=== PATIENT | female | born 1940 | race Caucasian/White ===

== ENCOUNTER → 2019-12-31 13:58 | Outpatient (BNVA) | payer MEDICARE, SELFPAY | PROVIDERS: Family Provider Family Medicine; PCP Family Medicine; Visit Provider Nurse Practitioner Family | DX: R35.0 Frequency of micturition (principal); R31.9 Hematuria, unspecified | CPT/HCPCS: 80053; 81000 ==

== ENCOUNTER → 2020-01-09 10:12 | Outpatient (BNVA) | payer MEDICARE, SELFPAY | PROVIDERS: Family Provider Family Medicine; PCP Family Medicine; Visit Provider Nurse Practitioner Family | DX: N39.0 Urinary tract infection, site not specified (principal) | CPT/HCPCS: 81000 ==

== ENCOUNTER → 2020-07-20 10:26 | Outpatient (BNVA) | payer MEDICARE, SELFPAY | PROVIDERS: Family Provider Family Medicine; PCP Family Medicine; Visit Provider Registered Nurse | DX: J32.9 Chronic sinusitis, unspecified (principal); Z20.822 Contact with and (suspected) exposure to COVID-19 | CPT/HCPCS: 87635 ==

== ENCOUNTER → 2020-11-27 10:41 | Outpatient (BNVA) | payer MEDICARE, SELFPAY | PROVIDERS: Family Provider Family Medicine; PCP Family Medicine; Visit Provider Nurse Practitioner Family | DX: N39.0 Urinary tract infection, site not specified (principal); R35.0 Frequency of micturition | CPT/HCPCS: 81000; 87086 ==

== ENCOUNTER → 2020-11-30 11:09 | Outpatient (BNVA) | payer MEDICARE, SELFPAY | PROVIDERS: Family Provider Family Medicine; PCP Family Medicine; Visit Provider Nurse Practitioner Family | DX: R35.0 Frequency of micturition (principal); N30.00 Acute cystitis without hematuria | CPT/HCPCS: 81000 ==

== ENCOUNTER → 2020-12-22 11:10 | Outpatient (BNVA) | payer MEDICARE, SELFPAY | PROVIDERS: Family Provider Family Medicine; PCP Nurse Practitioner Family; Visit Provider Nurse Practitioner Family | DX: R30.9 Painful micturition, unspecified (principal); E78.5 Hyperlipidemia, unspecified; I10 Essential (primary) hypertension; N30.00 Acute cystitis without hematuria | CPT/HCPCS: 81000 ==

== ENCOUNTER 2021-01-19 01:42 | Emergency (ER) | payer MEDICARE, SELFPAY ==
--- NOTE | 2021-01-19 01:48 | ECG_ITS ---
[facility] Test Date: 2021-01-19 Pat Name: Yulissa Craig Department: Room: Gender: Female Press Puller: : 1940 Requested By: Beau Carrington Order Number: [id number] Ariana MD: Priscilla Sandoval M.D. Measurements Intervals [place] Rate: 99 P: 78 OK: 141 QRS: 59 QRSD: 90 T: 67 QT: 316 QTc: 407 Interpretive Statements SINUS RHYTHM MINIMAL VOLTAGE CRITERIA FOR LVH, CONSIDER NORMAL VARIANT [MEETS CRITERIA IN ONE OF: R(aVL), S(V1), R(V5), R(V5/V6)+S(V1)] No previous ECG available for comparison Electronically Signed On 01-21-2021 9:06:53 CDT by Priscilla Sandoval M.D. [email or web address] medical centerSina [email or web address].[employer]/store/NU/[id number]/[id number] f
--- NOTE | 2021-01-19 01:48 | XRR_ITS ---
PROCEDURE INFORMATION: Exam: XR Chest Exam date and time: 01/19/2021 1:48 AM Age: 80 years old Clinical indication: Shortness of breath; Additional info: SOB TECHNIQUE: Imaging protocol: XR of the chest. Views: 1 view. COMPARISON: CR Cervical Spine Flex/Ext [id number] 05/23/2017 11:35 AM FINDINGS: Lungs: The lungs are over-inflated with flattening of the diaphragm indicating emphysema. There is scattered mild fibrosis. No acute pneumonia is seen. Pleural spaces: Unremarkable. No pleural effusion. No pneumothorax. Heart/Mediastinum: Unremarkable. No cardiomegaly. Bones/joints: Unremarkable. XR/XR chest 1V portable [id number] IMPRESSION: Overinflated lungs with scattered interstitial fibrosis consistent with the was a and COPD. No definite acute abnormality.
[2021-01-19 01:51] VITALS: BP 200/130; PULSE 104; RESP 20; TEMP 36.6; O2SAT 94; BMI 22.1
--- NOTE | 2021-01-19 01:51 | W.ED.SOB ---
HPI - SOB/Dyspnea General: Chief Complaint: Shortness of Breath/Dyspnea Stated Complaint: RESP. DISTRESS Time Seen by Provider: 01/19/21 01:42 Source: patient and EMS Mode of arrival: EMS Limitations: no limitations History of Present Illness: HPI Narrative: 80-year-old female has a history of COPD states she had increased shortness of breath over the last 4 to 5 days. Per EMS when they arrived she was on her roommates oxygen they put her on 2 L. Here on 2 L she is at 92%. She is a chronic smoker. She states she did use her inhaler and it did improve. She was given Solu-Medrol and a treatment in route which she states improved her symptoms. She has had a cough and slight congestion. Denies any fevers. Denies any sick contacts. Denies any chest pain. Associated symptoms: Deny abdominal pain, chest pain, fever(s), nausea or vomiting Review of Systems Const: Denies: fever(s), chills, body aches or change in appetite Eyes: Denies: blurry vision or eye discomfort ENMT: Denies: throat pain or dental pain Card: Denies: chest pain Resp: Reports: dyspnea, non-productive cough and wheezing GI: Denies: abdominal pain, nausea, vomiting or diarrhea : Denies: dysuria Musc: Denies: neck pain or back pain Skin/Breast: Denies: rash Neuro: Denies: headache(s) Psych: Denies: depression Neeraj/Lymph: Denies: easy bruising All/Imm: Denies: urticaria PFSH ED PFSH: Medical History HTN (hypertension) Hyperlipidemia Social History Smoking and tobacco status: current every day smoker cigarettes Physical Exam Const: COMMON NORMALS: no acute distress, patient oriented x3 and healthy appearing HENMT: COMMON NORMALS: normocephalic and atraumatic HEAD & SCALP: normocephalic and atraumatic Eye: COMMON NORMALS: Equal, round and reactive pupils present and EOMs intact bilaterally PUPIL: Yes Equal, round and reactive pupils present Neck/C-Spine: COMMON NORMALS: full ROM and supple Chest: COMMONS NORMALS: normal inspection of the chest and normal palpation of entire chest wall Resp: COMMON NORMALS: normal respiratory effort, No retractions and No use of accessory muscles AUSCULTATION: wheezes Cardio: COMMON NORMALS: regular rate, regular rhythm and No murmurs present (Cardio) RATE: regular rate RHYTHM: regular rhythm GI: COMMON NORMALS: Normal to inspection, nondistended, normoactive bowel sounds present, Soft to palpation, non-tender and no masses PALPATION: Yes Soft to palpation Extremity: COMMON NORMALS: normal to inspection and full ROM Neuro: COMMON NORMALS: patient oriented x3, moves all extremities and no focal motor deficits Psych: COMMON NORMALS: mental status grossly normal, Normal thought process present and cooperative THOUGHT PROCESS: Normal thought process present Skin: COMMON NORMALS: no rashes or lesions noted and no wounds GENERAL SKIN EXAM: no rashes or lesions noted Course Vital Signs: Vital signs: Vital Signs Temperature 97.8 F 01/19/21 01:51 Pulse Rate 98 01/19/21 02:45 Respiratory Rate 22 H 01/19/21 02:09 Blood Pressure 157/99 01/19/21 02:45 Pulse Oximetry 91 01/19/21 02:45 MDM - SOB/Dyspnea MDM Narrative: Medical decision making narrative: Patient presents with likely COPD exacerbation along with bronchitis. X-ray here shows no signs of pneumonia her blood work here is normal. She feels improved after breathing treatments. Patient is likely chronically hypoxic still requiring 2 L of oxygen here. We will set her up on home oxygen. Will prescribe her albuterol along with steroids and an antibiotic. She is stable for discharge is to follow-up with PCP and return if worsening. Lab Data: Labs: Lab Results 01/19/21 01/19/21 01/19/21 Range/Units 01:48 01:48 01:48 WBC (4.0-10.0) 10^3/ uL RBC (4.1-5.3) 10^6/u L Hgb (11.5-15.3) g/dL Hct (37.0-47.0) % MCV (81-99) fl MCH (28.0-34.0) pg MCHC (30.0-36.0) g/dL RDW (12.1-15.1) % Plt Count (130-400) 10^3/c mm MPV (7.4-10.4) fL Neut % (Auto) % Lymph % (Auto) % [place] % (Auto) % Eos % (Auto) % Baso % (Auto) % Neut # (Auto) (1.8-7.7) 10^3/u L Lymph # (Auto) (0.8-4.8) 10^3/u L [place] # (Auto) (0.2-0.9) 10^3/u L Eos # (Auto) (0.0-0.8) 10^3/u L Baso # (Auto) (0.0-0.1) 10^3/u L Nucleated RBC % (a uto) % Nucleated RBCs # /100WBC Specimen Type Arterial Sample Site Radial, right ABG pH 7.35 (7.35-7.45) ABG pCO2 49.2 H (35-45) mmHg ABG pO2 70.6 L (80.0-100.0) mmH g ABG HCO3 27.1 H (22-26) mmol/L ABG Base Excess 0.7 (-2.0-2.0) mmol/ L Jovan Test Pos Hematocrit 42.3 (37-47) % O2 Delivery Device Nc O2 Liters/Min 2.0 % Custodial Services Manager ID ellpe Sodium 138 (136-145) mmol/L Potassium 4.2 (3.5-5.1) mmol/L Chloride 99 (98-107) mmol/L Carbon Dioxide 26 (22-29) mmol/L Anion Gap 17.2 (5-19) BUN 19 (8-23) mg/dL Creatinine 0.9 (0.5-0.9) mg/dL GFR Calculation Not Reportable Glucose 103 (65-115) mg/dL Calculated Osmolal ity 289 (285-295) mOsm/k g Lactic Acid 0.8 (0.5-2.2) mmol/L Calcium 9.7 (8.5-10.5) mg/dL Total Bilirubin 0.6 (0.15-1.2) mg/dL AST 25 (0-32) U/L ALT 14 (0-33) U/L Alkaline Phosphata se 96 (35-105) IU/L C-Reactive Protein 1.1 (0.0-4.9) mg/L NT-Pro-B Natriuret Pep 255 (0-450) pg/mL Total Protein 7.9 (6.6-8.7) g/dL Albumin 4.8 (3.5-5.2) g/dL Globulin 3.1 (1.3-4.6) g/dL SARS-CoV-2 Ag (Rap id) (Negative) 01/19/21 01/19/21 Range/Units 02:01 02:23 WBC 12.6 H (4.0-10.0) 10^3/ uL RBC 4.25 (4.1-5.3) 10^6/u L Hgb 13.4 (11.5-15.3) g/dL Hct 41.5 (37.0-47.0) % MCV 97.6 (81-99) fl MCH 31.5 (28.0-34.0) pg MCHC 32.3 (30.0-36.0) g/dL RDW 13.9 (12.1-15.1) % Plt Count 248 (130-400) 10^3/c mm MPV 10.5 H (7.4-10.4) fL Neut % (Auto) 83.8 % Lymph % (Auto) 10.0 % Knott % (Auto) 2.5 % Eos % (Auto) 3.0 % Baso % (Auto) 0.5 % Neut # (Auto) 10.54 H (1.8-7.7) 10^3/u L Lymph # (Auto) 1.3 (0.8-4.8) 10^3/u L [place] # (Auto) 0.3 (0.2-0.9) 10^3/u L Eos # (Auto) 0.4 (0.0-0.8) 10^3/u L Baso # (Auto) 0.1 (0.0-0.1) 10^3/u L Nucleated RBC % (a uto) 0 % Nucleated RBCs # 0.0 /100WBC Specimen Type Sample Site ABG pH (7.35-7.45) ABG pCO2 (35-45) mmHg ABG pO2 (80.0-100.0) mmH g ABG HCO3 (22-26) mmol/L ABG Base Excess (-2.0-2.0) mmol/ L Jovan Test Hematocrit (37-47) % O2 Delivery Device O2 Liters/Min % Custodial Services Manager ID Sodium (136-145) mmol/L Potassium (3.5-5.1) mmol/L Chloride (98-107) mmol/L Carbon Dioxide (22-29) mmol/L Anion Gap (5-19) BUN (8-23) mg/dL Creatinine (0.5-0.9) mg/dL GFR Calculation Glucose (65-115) mg/dL Calculated Osmolal ity (285-295) mOsm/k g Lactic Acid (0.5-2.2) mmol/L Calcium (8.5-10.5) mg/dL Total Bilirubin (0.15-1.2) mg/dL AST (0-32) U/L ALT (0-33) U/L Alkaline Phosphata se (35-105) IU/L C-Reactive Protein (0.0-4.9) mg/L NT-Pro-B Natriuret Pep (0-450) pg/mL Total Protein (6.6-8.7) g/dL Albumin (3.5-5.2) g/dL Globulin (1.3-4.6) g/dL SARS-CoV-2 Ag (Rap id) Negative (Negative) EKG Data^: EKG 1: Attestation: I personally reviewed and interpreted this EKG as follows: EKG Interpretation Date: 01/19/21 EKG interpretation time: 01:56 Interpretation: nsr hr [address] or t wave abnormalities qrs 90 qtc 373 Discharge Plan Discharge Patient Disposition: Home Clinical Impression: Acute exacerbation of chronic obstructive airways disease Condition: Stable Prescriptions: New prednisone 50 mg tablet 50 mg PO DAILY Qty: 5 RF: 0 albuterol sulfate 90 mcg/actuation HFA aerosol inhaler 2 inh INHALATION Q6H PRN (Reason: shortness of breath or wheezing) Qty: 8 RF: 0 cephalexin 500 mg capsule 500 mg PO QID 7 Days Qty: 28 RF: 0 No Action dexamethasone [Decadron] 4 mg tablet 4 mg PO DAILY Qty: 6 RF: 0 albuterol sulfate [ProAir HFA] 90 mcg/actuation HFA aerosol inhaler 1 inh inhalation QID 30 Days Qty: 1 RF: 0 metoprolol tartrate 50 mg tablet See Rx Instructions .ROUTE .COMPLEX Qty: 60 RF: 0 simvastatin 40 mg tablet See Rx Instructions .ROUTE .COMPLEX Qty: 30 RF: 0 Discharge Orders: Discharge ED (Routine); Ordered 01/19/21 Ordered By: Beau Carrington Other Ambulatory Orders: DME: Oxygen (Order) Location: None Selected Ordered By: Beau Carrington Referrals: Kristen Thomas FNP [Primary Care Provider] - 1-3 days Discharge Diet: Advance as tolerated Discharge Activity: Resume usual activity Patient Instructions: Chronic Bronchitis (ED) Coding Level of Care Code ED Silk Screen Frame Assembler for Chg Fwd Exam Comprehensive
[2021-01-19 02:09] VITALS: PULSE 107; RESP 22; O2SAT 93
[2021-01-19] MEDS: albuterol 8 gm MDI 2 PUFF INHALATION (02:09)
[2021-01-19 02:12] VITALS: PULSE 107
[2021-01-19 02:22] LABS: ABG PCO2 49.2 mmHg (35-45); ABG PH Result 7.35 (7.35-7.45); Arterial Blood Gas Hematocrit 42.3 % (37-47); Base Excess ABG 0.7 mmol/L (-2.0-2.0); Blood Gas Allen Test Pos; Blood Gas Sample Site Radial, right; Blood Gas Sample Type Arterial; HCO3 ABG 27.1 mmol/L (22-26); Oxygen Device NC; PO2 ABG 70.6 mmHg (80.0-100.0)
[2021-01-19 02:27] LABS: Basophils # 0.1 10^3/uL (0.0-0.1); Basophils % 0.5 %; Eosinophils # 0.4 10^3/uL (0.0-0.8); Hematocrit 41.5 % (37.0-47.0); Hemoglobin 13.4 g/dL (11.5-15.3); Lymphocytes # 1.3 10^3/uL (0.8-4.8); Mean Corpuscular HGB Conc 32.3 g/dL (30.0-36.0); Mean Corpuscular Hemoglobin 31.5 pg (28.0-34.0); Mean Corpuscular Volume 97.6 fl (81-99); Mean Platelet Volume 10.5 fL (7.4-10.4); Monocytes # 0.3 10^3/uL (0.2-0.9); Monocytes % 2.5 %; Neutrophils # 10.54 10^3/uL (1.8-7.7); Neutrophils % 83.8 %; Nucleated Red Blood Cells % 0 %; Platelet Count 248 10^3/cmm (130-400); Red Blood Count 4.25 10^6/uL (4.1-5.3); Red Cell Distribution Width 13.9 % (12.1-15.1); White Blood Count 12.6 10^3/uL (4.0-10.0)
[2021-01-19 02:35] LABS: Lactic Sepsis W/Reflex 0.8 mmol/L (0.5-2.2)
[2021-01-19 02:36] LABS: SARS Covid-2 Antigen Negative (Negative)
[2021-01-19 02:45] VITALS: BP 157/99; PULSE 98; O2SAT 91
[2021-01-19 02:59] LABS: Alanine Aminotransferase 14 U/L (0-33); Albumin Level 4.8 g/dL (3.5-5.2); Alkaline Phosphatase 96 IU/L (35-105); Anion Gap 17.2 (5-19); Aspartate Amino Transferase 25 U/L (0-32); Blood Urea Nitrogen 19 mg/dL (8-23); C Reactive Protein 1.1 mg/L (0.0-4.9); Calcium 9.7 mg/dL (8.5-10.5); Carbon Dioxide 26 mmol/L (22-29); Chloride 99 mmol/L (98-107); Globulin 3.1 g/dL (1.3-4.6); Glucose 103 mg/dL (65-115); NT Pro B Type Natriuretic Pept 255 pg/mL (0-450); Osmolality Calculated 289 mOsm/kg (285-295); Potassium 4.2 mmol/L (3.5-5.1); Sodium 138 mmol/L (136-145); Total Bilirubin 0.6 mg/dL (0.15-1.2); Total Protein 7.9 g/dL (6.6-8.7)
[2021-01-19 05:07] VITALS: O2SAT 86; O2SAT 88; O2SAT 92
[2021-01-19 05:19] VITALS: BP 132/108; PULSE 101; RESP 18; O2SAT 91
== END 2021-01-19 06:07 | disposition home or self-care (01) ==
PROVIDERS: Emergency Provider Emergency Medicine; PCP Nurse Practitioner Family
DX: J44.1 Chronic obstructive pulmonary disease with (acute) exacerbation (principal); I10 Essential (primary) hypertension; E78.5 Hyperlipidemia, unspecified; F17.210 Nicotine dependence, cigarettes, uncomplicated; Z20.822 Contact with and (suspected) exposure to COVID-19
CPT/HCPCS: 36600; 71045; 80053; 82803; 83605; 83880; 85025; 86140; 87426; 93005; 94640; 99284; J3535

== ENCOUNTER 2021-02-04 06:00 | Outpatient (CLI) | payer MEDICARE, SELFPAY | END 2021-02-04 06:01 | disposition home or self-care (01) | LOC: LAB 09-23 15:18 | PROVIDERS: PCP Nurse Practitioner Family; Visit Provider Nurse Practitioner Family | DX: R35.0 Frequency of micturition (principal) | CPT/HCPCS: 81000 ==

== ENCOUNTER → 2021-03-30 11:00 | Outpatient (BNVA) | payer MEDICARE, SELFPAY | PROVIDERS: PCP Nurse Practitioner Family; Visit Provider Internal Medicine Critical Care Medicine | DX: Z20.822 Contact with and (suspected) exposure to COVID-19 (principal); J44.9 Chronic obstructive pulmonary disease, unspecified | CPT/HCPCS: 87635 ==

== ENCOUNTER 2021-04-06 12:48 | Outpatient (CLI) | payer MEDICARE, SELFPAY ==
--- NOTE | 2021-04-06 13:46 | PFTS_ITS ---
Date of Study:04/06/21 Date of Dictation: 04/07/2021 MECHANICS: Prebronchodilator forced vital capacity (FVC) is normal. Prebronchodilator forced expiratory volume in one second (FEV1) is normal. FEV1/FVC is normal. There is no postbronchodilator study. FLOW VOLUME LOOP: Normal. LUNG VOLUMES: Total lung capacity (TLC) is normal. Residual volume (RV) is normal.. DIFFUSING CAPACITY FOR CARBON MONOXIDE: Normal. . INTERPRETATION: The pulmonary function tests are normal. MTDD
--- NOTE | 2021-04-06 14:31 | PFTS_ITS ---
Date of Study:04/13/21 Date of Dictation: 04/13/2021 MECHANICS: Postbronchodilator forced vital capacity (FVC) is decreased 79%. Postbronchodilator forced expiratory volume in one second (FEV1) is moderately decreased 59%. FEV1/FVC is reduced. There is no significant response to bronchodilator. FLOW VOLUME LOOP: Sloping of expiratory limb suggestive of obstructive ventilatory defect LUNG VOLUMES: Total lung capacity (TLC) is increased. Residual volume (RV) severely increased 216% . DIFFUSING CAPACITY FOR CARBON MONOXIDE: moderately reduced 44% . INTERPRETATION: The pulmonary function tests are consistent with moderate obstructive ventilatory lung disease. There is significant air trapping on lung volumes. There is moderate gas transfer defect.-clinical Correlation recommended. MTDD
== END 2021-04-06 12:49 | disposition home or self-care (01) ==
LOC: RT 12:51
PROVIDERS: PCP Nurse Practitioner Family; Visit Provider Internal Medicine Critical Care Medicine
DX: J44.9 Chronic obstructive pulmonary disease, unspecified (principal)
CPT/HCPCS: 94060; 94726; 94729

== ENCOUNTER → 2021-07-28 10:11 | Outpatient (BNVA) | payer MEDICARE, SELFPAY | PROVIDERS: PCP Nurse Practitioner Family; Visit Provider Internal Medicine Critical Care Medicine | DX: J44.9 Chronic obstructive pulmonary disease, unspecified (principal); J96.11 Chronic respiratory failure with hypoxia; F17.210 Nicotine dependence, cigarettes, uncomplicated; I10 Essential (primary) hypertension | CPT/HCPCS: 99214 ==

== ENCOUNTER 2021-08-16 07:31 | Emergency (ER) | payer MEDICARE, SELFPAY ==
[2021-08-16 07:36] VITALS: BP 180/87; PULSE 84; RESP 19; TEMP 37.1; O2SAT 98
--- NOTE | 2021-08-16 07:47 | ECG_ITS ---
[facility] Test Date: 2021-08-16 Pat Name: Yulissa Craig Department: Room: Gender: Female Slip Dumper: : 1940 Requested By: Nir Ibanez Order Number: [id number] Ariana MD: Luciano Sánchez M.D. Measurements Intervals [place] Rate: 79 P: 71 ME: 140 QRS: 53 QRSD: 91 T: 72 QT: 351 QTc: 403 Interpretive Statements SINUS RHYTHM POSSIBLE LEFT ATRIAL ENLARGEMENT [-0.1mV P-WAVE IN V1/V2] MODERATE ST DEPRESSION [0.05+ mV ST DEPRESSION] Compared to ECG 01/19/2021 01:56:24 ST (T wave) deviation now present Electronically Signed On 08-17-2021 9:16:25 CDT by Luciano Sánchez M.D. [id number]
--- NOTE | 2021-08-16 07:47 | XR_ITS ---
WS: [id number] XR chest 1V portable [id number] REASON FOR EXAM: dyspnea/cough FINDINGS: Mild tortuosity the thoracic aorta. The heart is enlarged. Calcified granulomatous disease in both hemithoraces with dominant calcified granuloma in the right u pper lung. Fibronodular changes and bullous disease in both lung apices predominating on the right. B oth hemidiaphragms are flattened indicating hyperexpansion. No acute pulmonary parenchymal abnormality. Compared to the previous examination of 01/19/2021 there is a masslike density projected over the left lower lung which appears to be extrapleural. XR/XR chest 1V portable [id number] IMPRESSION: No acute lung abnormality. Interval development of masslike density over the le ft lower lung. The etiology is uncertain. This may relate to diaphragmatic abno rmality or represent overlying soft tissue artifact. Follow-up PA and lateral c hest is recommended.
--- NOTE | 2021-08-16 07:56 | ED_ITS ---
HPI - SOB/Dyspnea General: Chief Complaint: Shortness of Breath/Dyspnea Stated Complaint: SOB Time Seen by Provider: 08/16/21 07:38 Source: patient Mode of arrival: EMS Limitations: no limitations History of Present Illness: HPI Narrative: 72-year-old female presents emergency room with via EMS complaining of shortness of breath. Patient has a history of COPD and is chronically on 3 L by nasal cannula this morning she felt severely short of breath turned her oxygen up eventually to 5 L. She has only been using her rescue inhaler once or twice a day. She has noticed a change in the sputum the volume of sputum produced in a day is similar but the character has changed is more mucus-like. He denies any fever she was given nebulizer in route and is feeling better she is no longer short of breath she is on her baseline level of oxygen at this time. MD elicited complaint: shortness of breath and cough Onset (ago): hour(s) Timing: intermittent and improved Severity: moderate Exacerbating factors: nothing Relieving factors: oxygen, rest and bronchodilators Known history of: COPD Associated symptoms: Reports chest congestion and cough; Deny abdominal pain, chest pain, diaphoresis, dizziness, extremity pain, fever(s), hemoptysis, lightheadedness, myalgias, nausea, orthopnea, palpitations, paresthesias, polydipsia, polyuria, rash, sense of impending doom, syncope or vomiting Treatment prior to arrival: oxygen and bronchodilator Review of Systems Const: Denies: fever(s), chills or diaphoresis ENMT: Denies: throat pain, ear or mastoid pain, nasal discharge or nasal congestion Card: Denies: chest pain, palpitations, lightheadedness, syncope or orthopnea Resp: Reports: dyspnea, productive cough and chest congestion; Denies: hemoptysis GI: Denies: abdominal pain, nausea or vomiting : Denies: flank pain, difficulty voiding, dysuria, urinary frequency or urinary urgency Musc: Denies: extremity pain Skin/Breast: Denies: rash or pruritus Neuro: Denies: dizziness Endo: Denies: polyuria or polydipsia PFS ED PFSH: Medical History HTN (hypertension) Hyperlipidemia Social History Smoking and tobacco status: current every day smoker (0.5 ppd) cigarettes Packs smoked per day: 1 Years cigarettes smoked: 65 Quit status (tobacco): considering quitting Second hand smoke exposure: Yes Smoking risk assessment/counseling performed?: Yes Alcohol intake: never Counseling given: No Counseling given: No Lives independently: Yes Household members: other Details: Roommate Marital status: / Current occupational status: unemployed History of recent travel: No Current gender identity: Female Physical Exam Const: COMMON NORMALS: no acute distress GENERAL APPEARANCE: cooperative and comfortable ORIENTATION/CONSCIOUSNESS: Yes awake, Yes oriented to person, Yes oriented to place and Yes oriented to time HENMT: COMMON NORMALS: normocephalic, atraumatic and hearing grossly normal bilaterally HEAD & SCALP: normocephalic and atraumatic Neck/C-Spine: COMMON NORMALS: no JVD Resp: COMMON NORMALS: normal respiratory effort, No retractions, No use of accessory muscles and clear to auscultation bilaterally AUSCULTATION: clear to auscultation bilaterally Cardio: COMMON NORMALS: no JVD, regular rate, regular rhythm and No murmurs present (Cardio) RATE: regular rate RHYTHM: regular rhythm GI: COMMON NORMALS: Soft to palpation and No hepatosplenomegaly present AUSCULTATION: Yes normoactive bowel sounds PALPATION: Yes Soft to palpation, No Tenderness to palpation present (GI), No Guarding due to palpation present (GI) and Yes No hepatosplenomegaly present Extremity: COMMON NORMALS: normal to inspection, capillary refill normal, no clubbing, cyanosis or edema, no calf tenderness and no pedal edema Neuro: SENSORIUM/ORIENTATION: Yes oriented to person, Yes oriented to place and Yes oriented to time Skin: COMMON NORMALS: no rashes or lesions noted GENERAL SKIN EXAM: no rashes or lesions noted Course Vital Signs: Vital signs: Vital Signs Temperature 98.1 F 08/16/21 08:10 Pulse Rate 77 08/16/21 08:10 Respiratory Rate 19 H 08/16/21 07:36 Blood Pressure 150/80 08/16/21 08:10 Pulse Oximetry 96 08/16/21 08:10 MDM - SOB/Dyspnea Medical Decision Making Reviewed labs and imaging. Patient has a soft tissue shadowing uncertain finding on the right lower lobe of the lung recommend she follow-up with Dr. Fontenot to get further evaluation of that either follow-up chest x-ray or CT. She is better now after receiving a nebulizer in route here we are going to discharge her home encourage her to use the albuterol regularly for the next few days prednisone burst and taper and also put her on doxycycline for 10 days since she has a change in baseline sputum return if has problems Medical Records I reviewed the patient's medical records. Lab Data I reviewed the patient's lab results. : 08/16/21 07:45 08/16/21 07:45 Labs/Radiology: Radiology Impressions Chest X-Ray 08/16/21 07:47 IMPRESSION: No acute lung abnormality. Interval development of masslike density over the left lower lung. The etiology is uncertain. This may relate to diaphragmatic abnormality or represent overlying soft tissue artifact. Follow-up PA and lateral chest is recommended. Laboratory Results WBC 16.0 10^3/uL (4.0-10.0) H 08/16/21 07:45 RBC 4.82 10^6/uL (4.1-5.3) 08/16/21 07:45 Hgb 15.3 g/dL (11.5-15.3) 08/16/21 07:45 Hct 48.4 % (37.0-47.0) H 08/16/21 07:45 MCV 100.4 fl (81-99) H 08/16/21 07:45 MCH 31.7 pg (28.0-34.0) 08/16/21 07:45 MCHC 31.6 g/dL (30.0-36.0) 08/16/21 07:45 RDW 12.9 % (12.1-15.1) 08/16/21 07:45 Plt Count 269 10^3/cmm (130-400) 08/16/21 07:45 MPV 11.0 fL (7.4-10.4) H 08/16/21 07:45 Neut % (Auto) 74.3 % 08/16/21 07:45 Lymph % (Auto) 13.5 % 08/16/21 07:45 [place] % (Auto) 5.4 % 08/16/21 07:45 Eos % (Auto) 5.9 % 08/16/21 07:45 Baso % (Auto) 0.5 % 08/16/21 07:45 Neut # (Auto) 11.88 10^3/uL (1.8-7.7) H 08/16/21 07:45 Lymph # (Auto) 2.2 10^3/uL (0.8-4.8) 08/16/21 07:45 [place] # (Auto) 0.9 10^3/uL (0.2-0.9) 08/16/21 07:45 Eos # (Auto) 0.9 10^3/uL (0.0-0.8) H 08/16/21 07:45 Baso # (Auto) 0.1 10^3/uL (0.0-0.1) 08/16/21 07:45 Nucleated RBC % (auto) 0 % 08/16/21 07:45 Nucleated RBCs # 0.0 /100WBC 08/16/21 07:45 Specimen Type Arterial 08/16/21 07:51 Sample Site Radial, left 08/16/21 07:51 ABG pH 7.31 (7.35-7.45) L 08/16/21 07:51 ABG pCO2 53.6 mmHg (35-45) H 08/16/21 07:51 ABG pO2 91.4 mmHg (80.0-100.0) 08/16/21 07:51 ABG HCO3 27.2 mmol/L (22-26) H 08/16/21 07:51 ABG O2 Saturation 97.1 08/16/21 07:51 ABG Base Excess 0.0 mmol/L (-2.0-2.0) 08/16/21 07:51 Jovan Test Pos 08/16/21 07:51 A-a O2 Gradient 5.4 mmHg (5-10) 08/16/21 07:51 Hematocrit 43.3 % (37-47) 08/16/21 07:51 Hgb O2 Saturation 93.0 % (95-100) L 08/16/21 07:51 Carboxyhemoglobin 3.0 %THgb (0.4-20.1) 08/16/21 07:51 Methemoglobin 1.2 % (0.4-1.5) 08/16/21 07:51 Total Hemoglobin 14.1 g/dL (12-16) 08/16/21 07:51 Sodium 143.0 mmol/L (131-143) 08/16/21 07:51 Potassium 4.5 mmol/L (3.5-5.0) 08/16/21 07:51 Glucose 113.0 mg/dL (70-115) 08/16/21 07:51 Ionized Calcium 1.2 mmol/L (1.1-1.4) 08/16/21 07:51 O2 Delivery Device Nc 08/16/21 07:51 O2 Liters/Min 2.0 % 08/16/21 07:51 FiO2 28.0 % 08/16/21 07:51 Division Human Resources Manager ID Cak 08/16/21 07:51 Sodium 137 mmol/L (136-145) 08/16/21 07:45 Potassium 4.8 mmol/L (3.5-5.1) 08/16/21 07:45 Chloride 100 mmol/L (98-107) 08/16/21 07:45 Carbon Dioxide 28 mmol/L (22-29) 08/16/21 07:45 Anion Gap 13.8 (5-19) 08/16/21 07:45 BUN 27 mg/dL (8-23) H 08/16/21 07:45 Creatinine 1.0 mg/dL (0.5-0.9) H 08/16/21 07:45 GFR Calculation Not Reportable 08/16/21 07:45 Glucose 116 mg/dL (65-115) H 08/16/21 07:45 Calculated Osmolality 290 mOsm/kg (285-295) 08/16/21 07:45 Calcium 9.8 mg/dL (8.5-10.5) 08/16/21 07:45 Discharge Plan Discharge Patient Disposition: Home Clinical Impression: Acute exacerbation of chronic obstructive airways disease Condition: Stable Prescriptions: New doxycycline hyclate 100 mg capsule 100 mg PO BID 10 Days Qty: 20 0RF Medrol (Luigi) 4 mg tablets,dose pack See Rx Instructions .ROUTE .COMPLEX Qty: 21 0RF Rx Instructions: orally per package directions albuterol sulfate 90 mcg/actuation HFA aerosol inhaler 2 inh INHALATION Q4H PRN (Reason: shortness of breath or wheezing) Qty: 18 0RF No Action Spiriva with HandiHaler 18 mcg capsule, w/inhalation device 1 cap inhalation DAILY 30 Days Qty: 60 4RF Rx Instructions: puncture 1 cap using device; one dose = 2 inhalations albuterol sulfate [ProAir HFA] 90 mcg/actuation HFA aerosol inhaler 1 inh inhalation QID 30 Days Qty: 1 0RF Rx Instructions: 340B, may sub Ventolin if cheaper simvastatin 40 mg tablet See Rx Instructions .ROUTE .COMPLEX Qty: 90 1RF Dose Instruction: TAKE 1 TABLET EVERY DAY Rx Instructions: TAKE 1 TABLET EVERY DAY NEEDS LAB WORK albuterol sulfate 90 mcg/actuation HFA aerosol inhaler 2 inh INHALATION Q6H PRN (Reason: shortness of breath or wheezing) 30 Days Qty: 8 4RF budesonide-formoterol [Symbicort] 160-4.5 mcg/actuation HFA aerosol inhaler 2 puff inhalation BID 30 Days Qty: 10.2 3RF metoprolol tartrate 50 mg tablet See Rx Instructions .ROUTE .COMPLEX Qty: 60 0RF Dose Instruction: TAKE 1 TABLET BY MOUTH TWICE DAILY Rx Instructions: TAKE 1 TABLET BY MOUTH TWICE DAILY Discharge Orders: Discharge ED (Routine); Ordered 08/16/21 Ordered By: Nir Kim Referrals: Kristen Thomas FNP [Primary Care Provider] - Discharge Diet: Usual diet Discharge Activity: Increase activity as tolerated Patient Instructions: Opioid Safety Activity Restrictions/Additional Instructions: Follow-up with Dr. Fontenot within the next 10 to 14 days. You will need to discuss with him follow-up on the chest x-ray done today for further evaluation. Coding Level of Care Code ED Senior Clinical Data Coordinator for Sydney Fwfrancisco Exam Comprehensive
[2021-08-16 08:02] LABS: ABG PCO2 53.6 mmHg (35-45); ABG PH Result 7.31 (7.35-7.45); Alveolar-Arterial Oxygen Gradi 5.4 mmHg (5-10); Arterial Blood Gas Hematocrit 43.3 % (37-47); Blood Gas Allen Test Pos; Blood Gas Operator Identificat CAK; Blood Gas Sample Site Radial, left; Blood Gas Sample Type Arterial; HCO3 ABG 27.2 mmol/L (22-26); Ionized Calcium Level - ABG 1.2 mmol/L (1.1-1.4); Methemoglobin 1.2 % (0.4-1.5); Oxygen Device NC; Oxygen Saturation ABG 97.1; PO2 ABG 91.4 mmHg (80.0-100.0); Potassium Level - ABG 4.5 mmol/L (3.5-5.0); Total Hemoglobin 14.1 g/dL (12-16)
[2021-08-16 08:06] LABS: Basophils # 0.1 10^3/uL (0.0-0.1); Basophils % 0.5 %; Eosinophils # 0.9 10^3/uL (0.0-0.8); Eosinophils % 5.9 %; Hematocrit 48.4 % (37.0-47.0); Hemoglobin 15.3 g/dL (11.5-15.3); Lymphocytes # 2.2 10^3/uL (0.8-4.8); Lymphocytes % 13.5 %; Mean Corpuscular HGB Conc 31.6 g/dL (30.0-36.0); Mean Corpuscular Hemoglobin 31.7 pg (28.0-34.0); Mean Corpuscular Volume 100.4 fl (81-99); Monocytes # 0.9 10^3/uL (0.2-0.9); Monocytes % 5.4 %; Neutrophils # 11.88 10^3/uL (1.8-7.7); Neutrophils % 74.3 %; Nucleated Red Blood Cells % 0 %; Platelet Count 269 10^3/cmm (130-400); Red Blood Count 4.82 10^6/uL (4.1-5.3); Red Cell Distribution Width 12.9 % (12.1-15.1)
[2021-08-16 08:10] VITALS: BP 150/80; PULSE 77; TEMP 36.7; O2SAT 96
[2021-08-16 08:30] LABS: Anion Gap 13.8 (5-19); Blood Urea Nitrogen 27 mg/dL (8-23); Calcium 9.8 mg/dL (8.5-10.5); Carbon Dioxide 28 mmol/L (22-29); Chloride 100 mmol/L (98-107); Glucose 116 mg/dL (65-115); Osmolality Calculated 290 mOsm/kg (285-295); Potassium 4.8 mmol/L (3.5-5.1); Sodium 137 mmol/L (136-145)
[2021-08-16 09:26] VITALS: BP 115/84; PULSE 83; RESP 18; O2SAT 96
== END 2021-08-16 09:28 | disposition home or self-care (01) ==
PROVIDERS: Emergency Provider Family Medicine; PCP Nurse Practitioner Family
DX: J44.1 Chronic obstructive pulmonary disease with (acute) exacerbation (principal); F17.210 Nicotine dependence, cigarettes, uncomplicated
CPT/HCPCS: 36600; 71045; 80048; 80051; 82330; 82805; 85025; 93005; 99283

== ENCOUNTER 2021-09-23 14:00 | Outpatient (CLI) | payer MEDICARE, SELFPAY ==
--- NOTE | 2021-09-23 14:19 | XR_ITS ---
WS: [id number] XR chest 2V* [id number] REASON FOR EXAM: R93.89 - Abnormal findings on diagnostic imaging of other... FINDINGS: Previous marketing lead error. The area of concern was overlying the right lower chest. On the current examination there is no abnormality overlying either diaphragmatic region. The lungs are hyper expanded with expansion of the anterior clear space. The heart and the mediastinum are within normal limits. There is calcified granulomatous disease in both hemithoraces. No acute pulmonary parenchymal or pleural abnormality. XR/XR chest 2V* [id number] IMPRESSION: Previous abnormality is no longer identified presumably represented overlying s oft tissue artifact. Lung configuration suggests obstructive lung disease with moderate hyperexpansi on. No acute abnormality.
== END 2021-09-23 14:01 | disposition home or self-care (01) ==
PROVIDERS: PCP Nurse Practitioner Family; Visit Provider Nurse Practitioner Family
DX: R93.89 Abnormal findings on diagnostic imaging of other specified body structures (principal)
CPT/HCPCS: 71046

== ENCOUNTER → 2021-10-04 08:53 | Outpatient (BNVA) | payer MEDICARE, SELFPAY | PROVIDERS: PCP Nurse Practitioner Family; Visit Provider Internal Medicine Critical Care Medicine | DX: J44.9 Chronic obstructive pulmonary disease, unspecified (principal); F17.200 Nicotine dependence, unspecified, uncomplicated; J96.11 Chronic respiratory failure with hypoxia; I10 Essential (primary) hypertension; E78.5 Hyperlipidemia, unspecified | CPT/HCPCS: 99214 ==

== ENCOUNTER → 2022-02-23 08:47 | Outpatient (BNVA) | payer MEDICARE, SELFPAY | PROVIDERS: PCP Nurse Practitioner Family; Visit Provider Internal Medicine Critical Care Medicine | DX: J44.9 Chronic obstructive pulmonary disease, unspecified (principal); J96.11 Chronic respiratory failure with hypoxia; F17.210 Nicotine dependence, cigarettes, uncomplicated | CPT/HCPCS: 99214 ==

== ENCOUNTER → 2022-07-07 10:39 | Outpatient (BNVA) | payer MEDICARE, SELFPAY | PROVIDERS: PCP Nurse Practitioner Family; Visit Provider Nurse Practitioner Family | DX: I10 Essential (primary) hypertension (principal) | CPT/HCPCS: 80053; 80061 ==

== ENCOUNTER 2022-07-15 05:06 | Inpatient (IN) | payer MEDICARE, SELFPAY ==
[2022-07-15] VITALS (15 sets, daily range): BP systolic 111–164; BP diastolic 52–90; PULSE 71–108; RESP 15–28; TEMP 36.4–36.9; O2SAT 87–94; BMI 22.3
--- NOTE | 2022-07-15 05:10 | XR_ITS ---
WS: [id number] XR chest 1V portable [id number] REASON FOR EXAM: sob FINDINGS: Mild tortuosity the thoracic aorta. Calcified granulomatous disease in both hemithoraces. General configuration of the chest/lungs suggest obstructive lung disease. Compared to previous examination of 09/23/2021 there are prominent reticular interstitial densities th roughout both lungs which appear to be chronic. There is a vague density projected over the right hemidiaphragm which presumably represents an eventr ation. There is an opacity overlying the left lower lung field and possibly obscuring a portion of the left hemidiaphragm which could represent airspace consolidation. No other interval change is identified. XR/XR chest 1V portable [id number] IMPRESSION: Density in the left lower hemithorax not seen on the previous examination. Unce rtain etiology and chronicity. Suspect airspace consolidation, atelectasis or pneumonitis.
--- NOTE | 2022-07-15 05:11 | ED_ITS ---
Documented by User: Beau Carrington MD 07/15/22 05:13 HPI - SOB/Dyspnea General: Chief Complaint: Shortness of Breath/Dyspnea Stated Complaint: SOB Time Seen by Provider: 07/15/22 05:10 Source: patient and EMS Mode of arrival: EMS Limitations: no limitations History of Present Illness: HPI Narrative: states that started last night at 8 PM 81-year-old female who has a extensive history of COPD along with chronic smoker patient is on 2 L oxygen at home states she had a slight cough over the last 2 weeks got much worse short of breath this morning she had called EMS on her 2 L she was hypoxic they have had her on 4 L of given her breathing treatment and steroids she still has wheezing along with tachypnea she denies any fever denies any chest pain Associated symptoms: Deny abdominal pain, chest pain, fever(s), nausea or vomiting Review of Systems Const: Denies: fever(s), chills, body aches or change in appetite Eyes: Denies: blurry vision or eye discomfort ENMT: Denies: throat pain or dental pain Card: Denies: chest pain Resp: Reports: dyspnea, non-productive cough and wheezing GI: Denies: abdominal pain, nausea, vomiting or diarrhea : Denies: dysuria Musc: Denies: neck pain or back pain Skin/Breast: Denies: rash Neuro: Denies: headache(s) Psych: Denies: depression Neeraj/Lymph: Denies: easy bruising All/Imm: Denies: urticaria PFSH ED PFSH: Medical History HTN (hypertension) Hyperlipidemia Family History Daughter Cancer Son Cancer Diabetes Denies family history of CAD (coronary artery disease) Chronic kidney disease (CKD) Lung disease Social History Smoking and tobacco status: current every day smoker cigarettes Packs smoked per day: 0.5 Years cigarettes smoked: 65 Alcohol intake: never Counseling given: No Counseling given: No Adopted: No Lives independently: Yes Household members: other Details: Roommate Marital status: / Current occupational status: unemployed Current gender identity: Female Physical Exam Const: COMMON NORMALS: patient oriented x3 HENMT: COMMON NORMALS: normocephalic and atraumatic HEAD & SCALP: normocephalic and atraumatic Eye: COMMON NORMALS: Equal, round and reactive pupils present and EOMs intact bilaterally PUPIL: Yes Equal, round and reactive pupils present Neck/C-Spine: COMMON NORMALS: full ROM and supple Chest: COMMONS NORMALS: normal inspection of the chest and normal palpation of entire chest wall Resp: COMMON NORMALS: No use of accessory muscles EFFORT & INSPECTION: Yes tachypneic and Yes respiratory distress AUSCULTATION: wheezes Cardio: COMMON NORMALS: regular rate, regular rhythm and No murmurs present (Cardio) RATE: regular rate RHYTHM: regular rhythm GI: COMMON NORMALS: Normal to inspection, nondistended, normoactive bowel sounds present, Soft to palpation, non-tender and no masses PALPATION: Yes Soft to palpation Extremity: COMMON NORMALS: normal to inspection and full ROM Neuro: COMMON NORMALS: patient oriented x3, moves all extremities and no focal motor deficits Psych: COMMON NORMALS: mental status grossly normal, Normal thought process present and cooperative THOUGHT PROCESS: Normal thought process present Skin: COMMON NORMALS: no rashes or lesions noted and no wounds GENERAL SKIN EXAM: no rashes or lesions noted Course Vital Signs: Vital signs: Vital Signs Temperature 98.4 F 07/15/22 05:13 Pulse Rate 90 07/15/22 06:21 Respiratory Rate 20 H 07/15/22 06:21 Blood Pressure 132/90 07/15/22 06:20 Pulse Oximetry 91 07/15/22 06:21 Oxygen Delivery Me thod 07/15/22 06:21 Oxygen Flow Rate 3 07/15/22 06:21 MDM - SOB/Dyspnea Lab Data 07/15/22 05:19 07/15/22 05:19 Labs/Radiology: Laboratory Results WBC 9.4 10^3/uL (4.0-10.0) 07/15/22 05:19 RBC 4.41 10^6/uL (4.1-5.3) 07/15/22 05:19 Hgb 13.9 g/dL (11.5-15.3) 07/15/22 05:19 Hct 43.8 % (37.0-47.0) 07/15/22 05:19 MCV 99.3 fl (81-99) H 07/15/22 05:19 MCH 31.5 pg (28.0-34.0) 07/15/22 05:19 MCHC 31.7 g/dL (30.0-36.0) 07/15/22 05:19 RDW 13.0 % (12.1-15.1) 07/15/22 05:19 Plt Count 232 10^3/cmm (130-400) 07/15/22 05:19 MPV 10.5 fL (7.4-10.4) H 07/15/22 05:19 Neut % (Auto) 58.6 % 07/15/22 05:19 Lymph % (Auto) 24.9 % 07/15/22 05:19 Barrow % (Auto) 8.1 % 07/15/22 05:19 Eos % (Auto) 7.6 % 07/15/22 05:19 Baso % (Auto) 0.5 % 07/15/22 05:19 Neut # (Auto) 5.53 10^3/uL (1.8-7.7) 07/15/22 05:19 Lymph # (Auto) 2.4 10^3/uL (0.8-4.8) 07/15/22 05:19 Barrow # (Auto) 0.8 10^3/uL (0.2-0.9) 07/15/22 05:19 Eos # (Auto) 0.7 10^3/uL (0.0-0.8) 07/15/22 05:19 Baso # (Auto) 0.1 10^3/uL (0.0-0.1) 07/15/22 05:19 Nucleated RBC % (auto) 0 % 07/15/22 05:19 Nucleated RBCs # 0.0 /100WBC 07/15/22 05:19 Specimen Type Arterial 07/15/22 05:20 Sample Site Radial, left 07/15/22 05:20 ABG pH 7.34 (7.35-7.45) L 07/15/22 05:20 ABG pCO2 50.9 mmHg (35-45) H 07/15/22 05:20 ABG pO2 61.7 mmHg (80.0-100.0) L 07/15/22 05:20 ABG HCO3 27.5 mmol/L (22-26) H 07/15/22 05:20 ABG Base Excess 0.9 mmol/L (-2.0-2.0) 07/15/22 05:20 Jovan Test Pos 07/15/22 05:20 Hematocrit 42.2 % (37-47) 07/15/22 05:20 Hgb O2 Saturation 87.9 % (95-100) L 07/15/22 05:20 Carboxyhemoglobin 3.5 %THgb (0.4-20.1) 07/15/22 05:20 Methemoglobin 0.4 % (0.4-1.5) 07/15/22 05:20 Total Hemoglobin 13.8 g/dL (12-16) 07/15/22 05:20 O2 Delivery Device Nc 07/15/22 05:20 O2 Liters/Min 3.0 % 07/15/22 05:20 Process Control Supervisor ID [email or web address] 07/15/22 05:20 Sodium 140 mmol/L (136-145) 07/15/22 05:19 Potassium 4.0 mmol/L (3.5-5.1) 07/15/22 05:19 Chloride 102 mmol/L (98-107) 07/15/22 05:19 Carbon Dioxide 28 mmol/L (22-29) 07/15/22 05:19 Anion Gap 14.0 (5-19) 07/15/22 05:19 BUN 17 mg/dL (8-23) 07/15/22 05:19 Creatinine 0.9 mg/dL (0.5-0.9) 07/15/22 05:19 GFR Calculation Not Reportable 07/15/22 05:19 Glucose 107 mg/dL (65-115) 07/15/22 05:19 Calculated Osmolality 292 mOsm/kg (285-295) 07/15/22 05:19 Calcium 9.2 mg/dL (8.5-10.5) 07/15/22 05:19 Total Bilirubin 0.4 mg/dL (0.15-1.2) 07/15/22 05:19 AST 18 U/L (0-32) 07/15/22 05:19 ALT 12 U/L (0-33) 07/15/22 05:19 Alkaline Phosphatase 95 U/L (35-105) 07/15/22 05:19 NT-Pro-B Natriuret Pep 562 pg/mL (0-450) H 07/15/22 05:19 Total Protein 7.6 g/dL (6.6-8.7) 07/15/22 05:19 Albumin 4.3 g/dL (3.5-5.2) 07/15/22 05:19 Globulin 3.3 g/dL (1.3-4.6) 07/15/22 05:19 Influenza Type A Ag negative (Negative) 07/15/22 05:32 Influenza Type B Ag negative (Negative) 07/15/22 05:32 SARS-CoV-2 Ag (Rapid) negative (Negative) 07/15/22 05:32 Discharge Plan Discharge Patient Disposition: Admitted As Inpatient Admit Provider: Anastasiya Oconnor Clinical Impression: Acute exacerbation of chronic obstructive airways disease, Acute on chronic respiratory failure with hypoxia and hypercapnia Condition: Stable Sign Out Sign Out Data: Patient Sign Out occurred on 07/15/22 at 06:12. Patient's care was discussed, and care was transferred from to Horace Easley MD. Coding Level of Care Code ED Passenger Service Representative for Chg Fwd Documented by User: Horace Easley MD 07/15/22 08:13 HPI - SOB/Dyspnea General: Chief Complaint: Shortness of Breath/Dyspnea Stated Complaint: SOB Time Seen by Provider: 07/15/22 05:10 PFS ED PFSH: Medical History HTN (hypertension) Hyperlipidemia Family History Daughter Cancer Son Cancer Diabetes Denies family history of CAD (coronary artery disease) Chronic kidney disease (CKD) Lung disease Social History Smoking and tobacco status: current every day smoker cigarettes Packs smoked per day: 0.5 Years cigarettes smoked: 65 Alcohol intake: never Counseling given: No Counseling given: No Adopted: No Lives independently: Yes Household members: other Details: Roommate Marital status: / Current occupational status: unemployed Current gender identity: Female Course Vital Signs: Vital signs: Vital Signs Temperature 98.4 F 07/15/22 05:13 Pulse Rate 90 07/15/22 06:21 Respiratory Rate 20 H 07/15/22 06:21 Blood Pressure 132/90 07/15/22 06:20 Pulse Oximetry 91 07/15/22 06:21 Oxygen Delivery Me thod 07/15/22 06:21 Oxygen Flow Rate 3 07/15/22 06:21 MDM - SOB/Dyspnea Medical Decision Making Patient care handoff received from Dr. Carrington pending completion of ED evaluation and repeat RT treatment. Laboratory studies reviewed without significant hematologic or metabolic derangement. Minimal elevation in BNP though clinically patient is not grossly volume overloaded. Flu and COVID rapid testi ng are negative. ABG with hypercapnic and hypoxia despite supplemental oxygen with minimal derangement and pH. Chest x-ray with no lobar consolidation or pneumothorax. Imaging similar to prior. On reassessment patient still requiring greater than baseline oxygen and visibly dyspneic even at rest, lung sounds are improved however given that patient is currently on outpatient treatment and continues to worsen she requires inpatient management of exacerbation of COPD. The results of ED evaluation were discussed with the patient including plan for admission due to requirement for level of care not available if discharged to prevent significant worsening/deterioration. Patient agreeable with plan. Discussed with hospitalist service who was agreeable to admit patient. Lab Data 07/15/22 05:19 07/15/22 05:19 Labs/Radiology: Laboratory Results WBC 9.4 10^3/uL (4.0-10.0) 07/15/22 05:19 RBC 4.41 10^6/uL (4.1-5.3) 07/15/22 05:19 Hgb 13.9 g/dL (11.5-15.3) 07/15/22 05:19 Hct 43.8 % (37.0-47.0) 07/15/22 05:19 MCV 99.3 fl (81-99) H 07/15/22 05:19 MCH 31.5 pg (28.0-34.0) 07/15/22 05:19 MCHC 31.7 g/dL (30.0-36.0) 07/15/22 05:19 RDW 13.0 % (12.1-15.1) 07/15/22 05:19 Plt Count 232 10^3/cmm (130-400) 07/15/22 05:19 MPV 10.5 fL (7.4-10.4) H 07/15/22 05:19 Neut % (Auto) 58.6 % 07/15/22 05:19 Lymph % (Auto) 24.9 % 07/15/22 05:19 Barrow % (Auto) 8.1 % 07/15/22 05:19 Eos % (Auto) 7.6 % 07/15/22 05:19 Baso % (Auto) 0.5 % 07/15/22 05:19 Neut # (Auto) 5.53 10^3/uL (1.8-7.7) 07/15/22 05:19 Lymph # (Auto) 2.4 10^3/uL (0.8-4.8) 07/15/22 05:19 Barrow # (Auto) 0.8 10^3/uL (0.2-0.9) 07/15/22 05:19 Eos # (Auto) 0.7 10^3/uL (0.0-0.8) 07/15/22 05:19 Baso # (Auto) 0.1 10^3/uL (0.0-0.1) 07/15/22 05:19 Nucleated RBC % (auto) 0 % 07/15/22 05:19 Nucleated RBCs # 0.0 /100WBC 07/15/22 05:19 Specimen Type Arterial 07/15/22 05:20 Sample Site Radial, left 07/15/22 05:20 ABG pH 7.34 (7.35-7.45) L 07/15/22 05:20 ABG pCO2 50.9 mmHg (35-45) H 07/15/22 05:20 ABG pO2 61.7 mmHg (80.0-100.0) L 07/15/22 05:20 ABG HCO3 27.5 mmol/L (22-26) H 07/15/22 05:20 ABG Base Excess 0.9 mmol/L (-2.0-2.0) 07/15/22 05:20 Jovan Test Pos 07/15/22 05:20 Hematocrit 42.2 % (37-47) 07/15/22 05:20 Hgb O2 Saturation 87.9 % (95-100) L 07/15/22 05:20 Carboxyhemoglobin 3.5 %THgb (0.4-20.1) 07/15/22 05:20 Methemoglobin 0.4 % (0.4-1.5) 07/15/22 05:20 Total Hemoglobin 13.8 g/dL (12-16) 07/15/22 05:20 O2 Delivery Device Nc 07/15/22 05:20 O2 Liters/Min 3.0 % 07/15/22 05:20 Process Control Supervisor ID [email or web address] 07/15/22 05:20 Sodium 140 mmol/L (136-145) 07/15/22 05:19 Potassium 4.0 mmol/L (3.5-5.1) 07/15/22 05:19 Chloride 102 mmol/L (98-107) 07/15/22 05:19 Carbon Dioxide 28 mmol/L (22-29) 07/15/22 05:19 Anion Gap 14.0 (5-19) 07/15/22 05:19 BUN 17 mg/dL (8-23) 07/15/22 05:19 Creatinine 0.9 mg/dL (0.5-0.9) 07/15/22 05:19 GFR Calculation Not Reportable 07/15/22 05:19 Glucose 107 mg/dL (65-115) 07/15/22 05:19 Calculated Osmolality 292 mOsm/kg (285-295) 07/15/22 05:19 Calcium 9.2 mg/dL (8.5-10.5) 07/15/22 05:19 Total Bilirubin 0.4 mg/dL (0.15-1.2) 07/15/22 05:19 AST 18 U/L (0-32) 07/15/22 05:19 ALT 12 U/L (0-33) 07/15/22 05:19 Alkaline Phosphatase 95 U/L (35-105) 07/15/22 05:19 NT-Pro-B Natriuret Pep 562 pg/mL (0-450) H 07/15/22 05:19 Total Protein 7.6 g/dL (6.6-8.7) 07/15/22 05:19 Albumin 4.3 g/dL (3.5-5.2) 07/15/22 05:19 Globulin 3.3 g/dL (1.3-4.6) 07/15/22 05:19 Influenza Type A Ag negative (Negative) 07/15/22 05:32 Influenza Type B Ag negative (Negative) 07/15/22 05:32 SARS-CoV-2 Ag (Rapid) negative (Negative) 07/15/22 05:32 Discharge Plan Discharge Patient Disposition: Admitted As Inpatient Admit Provider: Anastasiya Oconnor Clinical Impression: Acute exacerbation of chronic obstructive airways disease, Acute on chronic respiratory failure with hypoxia and hypercapnia Condition: Stable Sign Out Sign Out Data: Patient Sign Out occurred on 07/15/22 at 06:12. Patient's care was discussed, and care was transferred from to Horace Easley MD. Coding Level of Care Code ED Passenger Service Representative for Sydney Guillen
[2022-07-15] MEDS: albuterol 2.5 mg/3 mL Neb INHALATION ×2 (05:21→06:20)
[2022-07-15 05:25] LABS: Basophils # 0.1 10^3/uL (0.0-0.1); Basophils % 0.5 %; Eosinophils # 0.7 10^3/uL (0.0-0.8); Eosinophils % 7.6 %; Hematocrit 43.8 % (37.0-47.0); Hemoglobin 13.9 g/dL (11.5-15.3); Lymphocytes # 2.4 10^3/uL (0.8-4.8); Lymphocytes % 24.9 %; Mean Corpuscular HGB Conc 31.7 g/dL (30.0-36.0); Mean Corpuscular Hemoglobin 31.5 pg (28.0-34.0); Mean Corpuscular Volume 99.3 fl (81-99); Mean Platelet Volume 10.5 fL (7.4-10.4); Monocytes # 0.8 10^3/uL (0.2-0.9); Monocytes % 8.1 %; Neutrophils # 5.53 10^3/uL (1.8-7.7); Neutrophils % 58.6 %; Nucleated Red Blood Cells % 0 %; Platelet Count 232 10^3/cmm (130-400); Red Blood Count 4.41 10^6/uL (4.1-5.3); White Blood Count 9.4 10^3/uL (4.0-10.0)
[2022-07-15 05:31] LABS: ABG PCO2 50.9 mmHg (35-45); ABG PH Result 7.34 (7.35-7.45); Arterial Blood Gas Hematocrit 42.2 % (37-47); Base Excess ABG 0.9 mmol/L (-2.0-2.0); Blood Gas Allen Test Pos; Blood Gas Sample Site Radial, left; Blood Gas Sample Type Arterial; Carboxyhemoglobin 3.5 %THgb (0.4-20.1); HCO3 ABG 27.5 mmol/L (22-26); HGB O2 Sat 87.9 % (95-100); Methemoglobin 0.4 % (0.4-1.5); Oxygen Device NC; PO2 ABG 61.7 mmHg (80.0-100.0); Total Hemoglobin 13.8 g/dL (12-16)
[2022-07-15 05:56] LABS: Alanine Aminotransferase 12 U/L (0-33); Albumin Level 4.3 g/dL (3.5-5.2); Alkaline Phosphatase 95 U/L (35-105); Aspartate Amino Transferase 18 U/L (0-32); Blood Urea Nitrogen 17 mg/dL (8-23); Calcium 9.2 mg/dL (8.5-10.5); Carbon Dioxide 28 mmol/L (22-29); Chloride 102 mmol/L (98-107); Globulin 3.3 g/dL (1.3-4.6); Glucose 107 mg/dL (65-115); NT Pro B Type Natriuretic Pept 562 pg/mL (0-450); Osmolality Calculated 292 mOsm/kg (285-295); Sodium 140 mmol/L (136-145); Total Bilirubin 0.4 mg/dL (0.15-1.2); Total Protein 7.6 g/dL (6.6-8.7)
[2022-07-15 06:05] LABS: Influenza A by IFA negative (Negative); Influenza B by IFA negative (Negative); SARS Covid-2 Antigen negative (Negative)
[2022-07-15] MEDS: doxycycline 100 MG in sodium chloride 0.9% (plus) 100 ML IV (07:03)
--- NOTE | 2022-07-15 08:38 | P.HP_ITS ---
Providers/Chief Complaint Admitting Physician: Anastasiya Oconnor MD Primary Care Provider: SUKHJINDER Anaya Chief Complaint: SOB History of Present Illness Yulissa Craig is a 81 year old female medical history of COPD, hypertension, hyperlipidemia and on 2 L oxygen [id number] at home presented to the hospital with worsening respiratory symptoms. She states that 2 weeks ago she got sick and was given antibiotics and some steroids however she did not take the antibiotics as directed but did take a few doses and now has gotten worse. She called EMS and she was hypoxic. She was requiring 4 L of oxygen and was given a breathing treatment. She was brought to the hospital and was noted to have significant wheezing along with tachypnea. States that she takes her inhalers at home. Usually she is fine but this time is much sicker. She follows with Dr. Fontenot for pulmonology but has not seen him in over 6 months at this time. She has a cough and is bringing up some sputum however she says it is very white and does not have a color to it. Denies having a fever at home. ER course: 132/90, pulse ox 91, respiratory 20, pulse 90, temperature 98.4 on 3 L nasal cannula. WBC 9.4, hemoglobin 13.9, blood gas obtained which showed 7.3/50.9/61.7, sodium 140, creatinine 0.9, BNP 562, influenza a, influenza B, COVID rapid antigen negative. Chest x-ray was obtained which showed density in the left lower hemithorax not seen on previous examination. Suspect airspace consolidation, atelectasis or pneumonitis. Upon Reviewing the x-ray I agree there may be consolidation in left lower lobe area. Medications/Allergies Home Medications Medication Instructions Recorded Confirmed Last Taken Type albuterol sulfate 90 mcg/actuation 2 inh inhalation Q6H PRN shortness 07/28/07/15/22 07/14/22 Rx aerosol inhaler of breath or wheezing 30 days #8 grams polymyxin B sulfate 10,000 1 drp ophthalmic (eye) Q3H 7 days 07/07/22 07/15/22 Unknown Rx unit-trimethoprim 1 mg/mL eye #10 mL drops (Polytrim) tiotropium bromide 18 mcg capsule 1 cap inhalation DAILY 30 days #60 07/07/22 07/15/22 07/14/22 Rx with inhalation device (Spiriva inhalations with HandiHaler) budesonide-formoterol HFA 160 2 puff inhalation BID #30.6 grams 07/12/22 07/15/22 07/14/22 Rx mcg-4.5 mcg/actuation aerosol inhaler (Symbicort) simvastatin 20 mg tablet 20 mg PO DAILY #30 tabs 07/12/22 07/15/22 07/14/22 Rx metoprolol tartrate 50 mg tablet 50 mg PO BID 07/15/22 07/15/22 07/14/22 History Allergies Allergy/AdvReac Type Severity Reaction Status Date / Time aspirin Allergy Unknown Verified 07/15/22 07:33 Sulfa (Sulfonamide Allergy UNKNOWN Verified 07/15/22 07:33 Antibiotics) PFSH Acute PFSH: Medical History HTN (hypertension) Hyperlipidemia Family History Daughter Cancer Son Cancer Diabetes Denies family history of CAD (coronary artery disease) Chronic kidney disease (CKD) Lung disease Social History Smoking and tobacco status: current every day smoker cigarettes Packs smoked per day: 0.5 Years cigarettes smoked: 65 Alcohol intake: never Counseling given: No Counseling given: No Adopted: No Lives independently: Yes Household members: other Details: Roommate Marital status: / Current occupational status: unemployed Current gender identity: Female Vitals/I&O/Wt Last Vital Signs Temp 98.4 F 07/15/22 05:13 Pulse 90 07/15/22 06:21 Resp 20 H 07/15/22 06:21 BP 132/90 07/15/22 06:20 Pulse Ox 93 07/15/22 08:24 O2 Del Method 07/15/22 06:21 O2 Flow Rate 3 07/15/22 06:21 Weight last 48 hrs Weight 57.153 kg Physical Exam 2 Narrative: General: Alert oriented x3, patient seen laying in bed, frail appearing female on 4 L nasal cannula at this time, cachectic, coughing HEENT: Normocephalic, atraumatic, EOMI, on 40 nasal cannula, no conversational dyspnea noted, no acute distress at this time. No use of accessory muscles at this time. Cardio: Regular rate rhythm, normal S1-S2, Respiratory: Diffuse rhonchi present throughout lung brown with very decreased air entry, chest sounds tight, mild wheezing expiratory also noted GI: Abdomen soft, nontender, nondistended, bowel sounds + Behavior: Appropriate and cooperative Extremities: no edema, no cyanosis Data 07/15/22 05:19 07/15/22 05:19 A&P Assessment and plan (1) Acute exacerbation of chronic obstructive airways disease: (2) Acute on chronic respiratory failure with hypoxia and hypercapnia: (3) Abnormal chest xray: (4) COPD with acute lower respiratory infection: (5) Nicotine addiction: (6) HTN (hypertension): (7) Hyperlipidemia: Plan #Acute on chronic hypoxic hypercapnic respiratory failure/COPD #LLL Pneumonia #Hypertension #Hyperlipidemia #Nicotine dependence - It seems to be patient has exacerbation of her COPD at this time with possibly a component of left lower lobe pneumonia. However I am not entirely convince if this pneumonia. SHe has failed outpatient therapy and warrants hospital admission. - I will start her on azithromycin and ceftriaxone IV and have her complete a 7 day course. - Check procalcitonin - Start on Solu-Medrol 40 every 8 hours - DuoNeb every 4 hours scheduled - We will hold off on inhaled budesonide as IV steroids are being given at this time - Order for flutter valve - Check sputum Gram stain culture -Continue home metoprolol -Continue Lipitor 20 daily - Continue to wean down oxygen as able back to baseline - Currently not in any anti-hypertensives - Offer nicotine patch Full CODE DVT PPX: heparin subc Diet: Regular Attestations Medical Necessity Statement*: Pt to cross > 2 midnight stay for management of COPD exacerbation requiring inpatient IV steroid treatment. Coding Level of Care Code 18632 Moderate MDM includes number and complexity of problems actively addressed during encounter, amount and/or complexity of data reviewed/ordered and described risk of complication, morbidity or mortality of management as do cumented Diagnoses Acute exacerbation of chronic obstructive airways disease J44.1 Acute on chronic respiratory failure with hypoxia and hypercapnia J96.21; J96.22 Abnormal chest xray R93.89 COPD with acute lower respiratory infection J44.0 Nicotine addiction F17.200 HTN (hypertension) I10 Hyperlipidemia E78.5
[2022-07-15 09:05] LABS: Procalcitonin 0.04 ng/mL (0-0.5); Thyroid Stimulating Hormone 1.46 uIU/mL (0.27-4.20)
[2022-07-15] MEDS: heparin 5,000 unit/mL INJ 1 mL 5000 UNIT SUBCUT ×2 (10:18→20:02)
[2022-07-15] MEDS: metoprolol tartrate 50 mg Tablet PO ×2 (10:19→20:02)
[2022-07-15] MEDS: azithromycin 250 mg Tablet 500 MG PO (10:19)
[2022-07-15] MEDS: cefTRIAXone 1,000 MG in sodium chloride 0.9% (plus) 50 ML 100 MG IV (11:16)
[2022-07-15] MEDS: ipratropium-albuterol 3 mL Neb INHALATION ×3 (11:22→19:48)
[2022-07-16] VITALS (8 sets, daily range): BP systolic 133–148; BP diastolic 68–87; PULSE 66–84; RESP 14–19; TEMP 36.4–37.1; O2SAT 92–97
[2022-07-16 04:59] LABS: Basophils % 0.1 %; Hematocrit 38.5 % (37.0-47.0); Hemoglobin 12.6 g/dL (11.5-15.3); Lymphocytes # 0.8 10^3/uL (0.8-4.8); Lymphocytes % 10.2 %; Mean Corpuscular HGB Conc 32.7 g/dL (30.0-36.0); Mean Corpuscular Hemoglobin 32.5 pg (28.0-34.0); Mean Corpuscular Volume 99.2 fl (81-99); Mean Platelet Volume 10.6 fL (7.4-10.4); Monocytes # 0.3 10^3/uL (0.2-0.9); Monocytes % 3.9 %; Neutrophils # 6.61 10^3/uL (1.8-7.7); Neutrophils % 85.3 %; Nucleated Red Blood Cells % 0 %; Platelet Count 229 10^3/cmm (130-400); Red Blood Count 3.88 10^6/uL (4.1-5.3); Red Cell Distribution Width 13.2 % (12.1-15.1); White Blood Count 7.8 10^3/uL (4.0-10.0)
[2022-07-16 05:20] LABS: Anion Gap 15.5 (5-19); Blood Urea Nitrogen 23 mg/dL (8-23); Calcium 9.5 mg/dL (8.5-10.5); Carbon Dioxide 26 mmol/L (22-29); Chloride 102 mmol/L (98-107); Creatinine Clr Calc Pharmacy 48.8805; Glucose 137 mg/dL (65-115); Magnesium 1.8 mg/dL (1.7-2.3); Osmolality Calculated 294 mOsm/kg (285-295); Potassium 4.5 mmol/L (3.5-5.1); Sodium 139 mmol/L (136-145)
[2022-07-16] MEDS: azithromycin 250 mg Tablet 500 MG PO (08:09)
[2022-07-16] MEDS: atorvastatin 40 mg Tablet 20 MG PO (08:09)
[2022-07-16] MEDS: metoprolol tartrate 50 mg Tablet PO ×2 (10:14→21:15)
[2022-07-16] MEDS: ipratropium-albuterol 3 mL Neb INHALATION ×2 (11:18→15:37)
[2022-07-16] MEDS: cefTRIAXone 1,000 MG in sodium chloride 0.9% (plus) 50 ML 100 MG IV (11:41)
--- NOTE | 2022-07-16 12:32 | PM.PN ---
Subjective Subjective: Seen today. Patient is very congested unable to cough up any sputum. Says she feels worse today. Vitals/I&O/Wt Last Vital Signs Temp 98.0 F 07/16/22 03:22 Pulse 79 07/16/22 11:23 Resp 18 07/16/22 11:18 BP 135/69 07/16/22 07:47 Pulse Ox 92 07/16/22 11:18 O2 Del Method 07/16/22 11:18 O2 Flow Rate 4 07/16/22 11:18 07/15/22 07/16/22 07/16/22 22:59 06:59 14:59 Intake Total 360 / 700 240 / 940 890 / 890 Output Total 250 / 475 Balance 360 / 475 -10 / 465 890 / 890 Weight last 48 hrs Weight 57.153 kg Weight 57.153 kg Physical Exam Narrative: General: Alert oriented x3, patient seen laying in bed, frail appearing female on 4 L nasal cannula at this time, cachectic, coughing HEENT: Normocephalic, atraumatic, EOMI, on 40 nasal cannula, no conversational dyspnea noted, no acute distress at this time. No use of accessory muscles at this time. Cardio: Regular rate rhythm, normal S1-S2, Respiratory: Diffuse rhonchi present throughout lung brown with very decreased air entry, chest sounds tight, mild wheezing expiratory also noted. Slightly improved lung exam compared to yesterday however still very congested. GI: Abdomen soft, nontender, nondistended, bowel sounds + Behavior: Appropriate and cooperative Extremities: no edema, no cyanosis Data 07/16/22 04:13 07/16/22 04:13 A&P Assessment and plan (1) Acute exacerbation of chronic obstructive airways disease: (2) Acute on chronic respiratory failure with hypoxia and hypercapnia: (3) Abnormal chest xray: (4) COPD with acute lower respiratory infection: (5) Nicotine addiction: (6) HTN (hypertension): (7) Hyperlipidemia: Plan #Acute on chronic hypoxic hypercapnic respiratory failure/COPD #LLL Pneumonia #Hypertension #Hyperlipidemia #Nicotine dependence - It seems to be patient has exacerbation of her COPD at this time with possibly a component of left lower lobe pneumonia. However I am not entirely convince if this pneumonia. She has failed outpatient therapy and warrants hospital admission. -continue on azithromycin and ceftriaxone IV and have her complete a 7 day course. - procalcitonin 0.04 - continue on Solu-Medrol 40 every 8 hours - DuoNeb every 4 hours scheduled - We will hold off on inhaled budesonide as IV steroids are being given at this time - continue for flutter valve - add mucinex - Check sputum Gram stain culture -Continue home metoprolol -Continue Lipitor 20 daily - Continue to wean down oxygen as able back to baseline - Currently not in any anti-hypertensives - Offer nicotine patch Full CODE DVT PPX: heparin subc Diet: Regular Attestations Medical Necessity Statement*: Pt to cross > 2 midnight stay for management of COPD exacerbation requiring inpatient IV steroid treatment. Diagnoses Acute exacerbation of chronic obstructive airways disease J44.1 Acute on chronic respiratory failure with hypoxia and hypercapnia J96.21; J96.22 Abnormal chest xray R93.89 COPD with acute lower respiratory infection J44.0 Nicotine addiction F17.200 HTN (hypertension) I10 Hyperlipidemia E78.5
[2022-07-16] MEDS: guaiFENesin 600 mg Tablet PO (17:37)
[2022-07-16] MEDS: pantoprazole 40 mg SDV IVP (21:02)
[2022-07-16] MEDS: heparin 5,000 unit/mL INJ 1 mL 5000 UNIT SUBCUT (21:15)
[2022-07-16 22:51] LABS: Glucose Point of Care 124 mg/dL (70-110)
[2022-07-17] VITALS (7 sets, daily range): BP systolic 100–158; BP diastolic 63–73; PULSE 58–88; RESP 15–18; TEMP 36.8–37.1; O2SAT 86–95
[2022-07-17 05:22] LABS: Basophils % 0.1 %; Hematocrit 39.2 % (37.0-47.0); Hemoglobin 12.5 g/dL (11.5-15.3); Lymphocytes # 0.7 10^3/uL (0.8-4.8); Lymphocytes % 5.7 %; Mean Corpuscular HGB Conc 31.9 g/dL (30.0-36.0); Mean Corpuscular Hemoglobin 31.9 pg (28.0-34.0); Mean Platelet Volume 11.1 fL (7.4-10.4); Monocytes # 0.4 10^3/uL (0.2-0.9); Monocytes % 3.5 %; Neutrophils # 11.39 10^3/uL (1.8-7.7); Neutrophils % 90.1 %; Nucleated Red Blood Cells % 0 %; Platelet Count 228 10^3/cmm (130-400); Red Blood Count 3.92 10^6/uL (4.1-5.3); Red Cell Distribution Width 13.3 % (12.1-15.1); White Blood Count 12.6 10^3/uL (4.0-10.0)
[2022-07-17 05:40] LABS: Anion Gap 14.5 (5-19); Blood Urea Nitrogen 30 mg/dL (8-23); Calcium 9.2 mg/dL (8.5-10.5); Carbon Dioxide 26 mmol/L (22-29); Chloride 103 mmol/L (98-107); Glucose 133 mg/dL (65-115); Osmolality Calculated 296 mOsm/kg (285-295); Potassium 4.5 mmol/L (3.5-5.1); Sodium 139 mmol/L (136-145)
[2022-07-17] MEDS: ipratropium-albuterol 3 mL Neb INHALATION ×2 (08:05→12:34)
[2022-07-17] MEDS: azithromycin 250 mg Tablet 500 MG PO (08:23)
[2022-07-17] MEDS: guaiFENesin 600 mg Tablet PO (08:23)
[2022-07-17] MEDS: heparin 5,000 unit/mL INJ 1 mL 5000 UNIT SUBCUT (08:24)
[2022-07-17] MEDS: metoprolol tartrate 50 mg Tablet PO (08:24)
[2022-07-17] MEDS: atorvastatin 40 mg Tablet 20 MG PO (08:24)
[2022-07-17] MEDS: pantoprazole 40 mg SDV IVP (08:40)
[2022-07-17] MEDS: cefTRIAXone 1,000 MG in sodium chloride 0.9% (plus) 50 ML 100 MG IV (11:12)
--- NOTE | 2022-07-17 14:42 | PM.DCS ---
Discharge Providers Date of Admission: 07/15/22 09:33 Date of Discharge: July 17, 2022 Attending Provider at Admission: Anastasiya Oconnor MD Attending Provider at Discharge: Anastasiya Oconnor MD Primary Care Provider: SUKHJINDER Anaya Diagnoses at Discharge Discharge Diagnosis (1) Acute exacerbation of chronic obstructive airways disease: Status: Resolved (2) Acute on chronic respiratory failure with hypoxia and hypercapnia: Status: Resolved (3) Abnormal chest xray: Status: Resolved (4) COPD with acute lower respiratory infection: Status: Acute (5) Nicotine addiction: Status: Acute (6) HTN (hypertension): Status: Acute (7) Hyperlipidemia: Status: Acute Reason for Visit Reason for Visit: SOB Brief History: Yulissa Craig is a 81 year old female medical history of COPD, hypertension, hyperlipidemia and on 2 L oxygen [id number] at home presented to the hospital with worsening respiratory symptoms.? She states that 2 weeks ago she got sick and was given antibiotics and some steroids however she did not take the antibiotics as directed but did take a few doses and now has gotten worse.? She called EMS and she was hypoxic.? She was requiring 4 L of oxygen and was given a breathing treatment.? She was brought to the hospital and was noted to have significant wheezing along with tachypnea.? States that she takes her inhalers at home.? Usually she is fine but this time is much sicker.? She follows with Dr. Fontenot for pulmonology but has not seen him in over 6 months at this time.? She has a cough and is bringing up some sputum however she says it is very white and does not have a color to it.? Denies having a fever at home. ER course: 132/90, pulse ox 91, respiratory 20, pulse 90, temperature 98.4 on 3 L nasal cannula.? WBC 9.4, hemoglobin 13.9, blood gas obtained which showed 7.3/50.9/61.7, sodium 140, creatinine 0.9, BNP 562, influenza a, influenza B, COVID rapid antigen negative.? Chest x-ray was obtained which showed density in the left lower hemithorax not seen on previous examination.? Suspect airspace consolidation, atelectasis or pneumonitis. Upon Reviewing the x-ray I agree there may be consolidation in left lower lobe area. Hospital Course Hospital Course Admitted for LLL pneumonia and COPD exacerbation. Remained on baseline o2. Sent home with antibiotics and steroids. Improved at discharge. Encouraged to follow up with pulm at discharge. Physical Exam Narrative: General: Alert oriented x3, patient seen laying in bed, frail appearing female on 4 L nasal cannula at this time, cachectic, coughing HEENT: Normocephalic, atraumatic, EOMI, on 4L nasal cannula, no conversational dyspnea noted, no acute distress at this time. No use of accessory muscles at this time. Cardio: Regular rate rhythm, normal S1-S2, Respiratory: Mild rhonchi present throughout lung brown with fair air entry, Significant improvement GI: Abdomen soft, nontender, nondistended, bowel sounds + Behavior: Appropriate and cooperative Extremities: no edema, no cyanosis Discharge Data Studies Completed and Pending Completed Studies During Hospitalization Category Date Time Status XR chest 1V portable [id number] Stat Exams 07/15/22 05:10 Completed Pending at discharge Category Date Time Status Sputum Culture and Gram Stain Stat Lab 07/15/22 08:35 Uncollected Radiology Impressions Chest X-Ray 07/15/22 05:10 IMPRESSION: Density in the left lower hemithorax not seen on the previous examination. Uncertain etiology and chronicity. Suspect airspace consolidation, atelectasis or pneumonitis. Laboratory Results WBC 12.6 10^3/uL (4.0-10.0) H 07/17/22 04:13 RBC 3.92 10^6/uL (4.1-5.3) L 07/17/22 04:13 Hgb 12.5 g/dL (11.5-15.3) 07/17/22 04:13 Hct 39.2 % (37.0-47.0) 07/17/22 04:13 MCV 100.0 fl (81-99) H 07/17/22 04:13 MCH 31.9 pg (28.0-34.0) 07/17/22 04:13 MCHC 31.9 g/dL (30.0-36.0) 07/17/22 04:13 RDW 13.3 % (12.1-15.1) 07/17/22 04:13 Plt Count 228 10^3/cmm (130-400) 07/17/22 04:13 MPV 11.1 fL (7.4-10.4) H 07/17/22 04:13 Neut % (Auto) 90.1 % 07/17/22 04:13 Lymph % (Auto) 5.7 % 07/17/22 04:13 Bonner % (Auto) 3.5 % 07/17/22 04:13 Eos % (Auto) 0.0 % 07/17/22 04:13 Baso % (Auto) 0.1 % 07/17/22 04:13 Neut # (Auto) 11.39 10^3/uL (1.8-7.7) H 07/17/22 04:13 Lymph # (Auto) 0.7 10^3/uL (0.8-4.8) L 07/17/22 04:13 Bonner # (Auto) 0.4 10^3/uL (0.2-0.9) 07/17/22 04:13 Eos # (Auto) 0.0 10^3/uL (0.0-0.8) 07/17/22 04:13 Baso # (Auto) 0.0 10^3/uL (0.0-0.1) 07/17/22 04:13 Nucleated RBC % (auto) 0 % 07/17/22 04:13 Nucleated RBCs # 0.0 /100WBC 07/17/22 04:13 Specimen Type Arterial 07/15/22 05:20 Sample Site Radial, left 07/15/22 05:20 ABG pH 7.34 (7.35-7.45) L 07/15/22 05:20 ABG pCO2 50.9 mmHg (35-45) H 07/15/22 05:20 ABG pO2 61.7 mmHg (80.0-100.0) L 07/15/22 05:20 ABG HCO3 27.5 mmol/L (22-26) H 07/15/22 05:20 ABG Base Excess 0.9 mmol/L (-2.0-2.0) 07/15/22 05:20 Jovan Test Pos 07/15/22 05:20 Hematocrit 42.2 % (37-47) 07/15/22 05:20 Hgb O2 Saturation 87.9 % (95-100) L 07/15/22 05:20 Carboxyhemoglobin 3.5 %THgb (0.4-20.1) 07/15/22 05:20 Methemoglobin 0.4 % (0.4-1.5) 07/15/22 05:20 Total Hemoglobin 13.8 g/dL (12-16) 07/15/22 05:20 O2 Delivery Device Nc 07/15/22 05:20 O2 Liters/Min 3.0 % 07/15/22 05:20 Early Childhood Services Coordinator ID [email or web address] 07/15/22 05:20 Sodium 139 mmol/L (136-145) 07/17/22 04:13 Potassium 4.5 mmol/L (3.5-5.1) 07/17/22 04:13 Chloride 103 mmol/L (98-107) 07/17/22 04:13 Carbon Dioxide 26 mmol/L (22-29) 07/17/22 04:13 Anion Gap 14.5 (5-19) 07/17/22 04:13 BUN 30 mg/dL (8-23) H 07/17/22 04:13 Creatinine 0.9 mg/dL (0.5-0.9) 07/17/22 04:13 GFR Calculation Not Reportable 07/17/22 04:13 Glucose 133 mg/dL (65-115) H 07/17/22 04:13 POC Glucose 124 mg/dL (70-110) H 07/16/22 22:47 Calculated Osmolality 296 mOsm/kg (285-295) H 07/17/22 04:13 Calcium 9.2 mg/dL (8.5-10.5) 07/17/22 04:13 Magnesium 1.8 mg/dL (1.7-2.3) 07/16/22 04:13 Total Bilirubin 0.4 mg/dL (0.15-1.2) 07/15/22 05:19 AST 18 U/L (0-32) 07/15/22 05:19 ALT 12 U/L (0-33) 07/15/22 05:19 Alkaline Phosphatase 95 U/L (35-105) 07/15/22 05:19 NT-Pro-B Natriuret Pep 562 pg/mL (0-450) H 07/15/22 05:19 Total Protein 7.6 g/dL (6.6-8.7) 07/15/22 05:19 Albumin 4.3 g/dL (3.5-5.2) 07/15/22 05:19 Globulin 3.3 g/dL (1.3-4.6) 07/15/22 05:19 Procalcitonin 0.04 ng/mL (0-0.5) 07/15/22 05:19 TSH 1.46 uIU/mL (0.27-4.20) 07/15/22 05:19 Influenza Type A Ag negative (Negative) 07/15/22 05:32 Influenza Type B Ag negative (Negative) 07/15/22 05:32 SARS-CoV-2 Ag (Rapid) negative (Negative) 07/15/22 05:32 Vitals Last Vital Signs Temp 98.2 F 07/17/22 07:48 Pulse 79 07/17/22 12:34 Resp 18 07/17/22 12:34 BP 127/63 07/17/22 12:00 Pulse Ox 90 07/17/22 12:47 O2 Del Method 07/17/22 12:34 O2 Flow Rate 3 07/17/22 12:47 Discharge Plan Discharge Patient Disposition: Home Condition: Stable Prescriptions: Continued albuterol sulfate 90 mcg/actuation HFA aerosol inhaler 2 inh INHALATION Q6H PRN (Reason: shortness of breath or wheezing) 30 Days Qty: 8 4RF Spiriva with HandiHaler 18 mcg capsule, w/inhalation device 1 cap inhalation DAILY 30 Days Qty: 60 0RF Rx Instructions: puncture 1 cap using device; one dose = 2 inhalations polymyxin B sulf-trimethoprim [Polytrim] 10,000 unit- 1 mg/mL drops 1 drp ophthalmic (eye) Q3H 7 Days Qty: 10 0RF Rx Instructions: while awake; do not exceed 6 doses in 24 hours budesonide-formoterol [Symbicort] 160-4.5 mcg/actuation HFA aerosol inhaler 2 puff inhalation BID Qty: 30.6 0RF simvastatin 20 mg tablet 20 mg PO DAILY Qty: 30 0RF metoprolol tartrate 50 mg tablet 50 mg PO BID Discharge Orders: Discharge Order (Routine); Ordered 07/17/22 Ordered By: Anastasiya Oconnor Other Ambulatory Orders: DME: Oxygen (Order) Location: None Selected Ordered By: Anastasiya Oconnor Referrals: DatarChristiano MD [Physician] - 2 weeks Kristen Thomas FNP [Primary Care Provider] - 4-7 days (Please call tomorrow to set up your hospital follow up appointment with Kristen Thomas. ) Discharge Diet: Regular Discharge Activity: Resume usual activity and Oxygen as instructed Patient Instructions: Decongestant/Expectorant (By mouth), Prednisone (By mouth), Levofloxacin (By mouth), COPD (Chronic Obstructive Pulmonary Disease) (DC), COPD Stoplight, Opioid Safety Activity Restrictions/Additional Instructions: Return to ER should you experience worsening of symptoms or new symptoms develop. Discharge Attestations Time Spent in Discharge Care*: less than 30 min Quality Metrics Clinical Quality Measures [ No reported AMI, CVA or VTE this stay] Coding Level of Care Code 67356 Diagnoses Acute exacerbation of chronic obstructive airways disease J44.1 Acute on chronic respiratory failure with hypoxia and hypercapnia J96.21; J96.22 Abnormal chest xray R93.89 COPD with acute lower respiratory infection J44.0 Nicotine addiction F17.200 HTN (hypertension) I10 Hyperlipidemia E78.5
== END 2022-07-17 15:22 | disposition home or self-care (01) | DRG 193 ==
LOC: ER 07:39 → MEDSURG 08:13
PROVIDERS: Emergency Medicine; Admitting Provider Internal Medicine; Emergency Provider Emergency Medicine; PCP Nurse Practitioner Family; Visit Provider Internal Medicine
DX: J18.9 Pneumonia, unspecified organism (principal); J96.21 Acute and chronic respiratory failure with hypoxia; J96.22 Acute and chronic respiratory failure with hypercapnia; J44.1 Chronic obstructive pulmonary disease with (acute) exacerbation; J44.0 Chronic obstructive pulmonary disease with (acute) lower respiratory infection; I10 Essential (primary) hypertension; E78.5 Hyperlipidemia, unspecified; Z99.81 Dependence on supplemental oxygen; Z79.51 Long term (current) use of inhaled steroids; F17.210 Nicotine dependence, cigarettes, uncomplicated
CPT/HCPCS: 36415; 36416; 36600; 71045; 80048; 80053; 82805; 82962; 83735; 83880; 84145; 84443; 85025; 87426; 87804; 94640; 94664; 94760; 96365; 96372; 96375; 99285; C9113; J0696; J1644; J2920; J2930; J3490; J7613; Q0144

== ENCOUNTER → 2022-07-28 11:03 | Outpatient (BNVA) | payer MEDICARE, SELFPAY | PROVIDERS: PCP Nurse Practitioner Family; Visit Provider Internal Medicine Pulmonary Disease | DX: J44.9 Chronic obstructive pulmonary disease, unspecified (principal); J96.11 Chronic respiratory failure with hypoxia; F17.218 Nicotine dependence, cigarettes, with other nicotine-induced disorders; Z99.81 Dependence on supplemental oxygen | CPT/HCPCS: 99214 ==

== ENCOUNTER 2022-09-30 11:03 | Outpatient (CLI) | payer MEDICARE, SELFPAY ==
--- NOTE | 2022-09-30 11:08 | CT_ITS ---
WS: [id number] LDCT LUNG CANCER SCREENING HISTORY: lung screening TECHNIQUE: Axial imaging performed from the apices to 1 cm below the costophrenic angles. Coronal and sagittal reformats are submitted with axial MIP series. All CT scans at [facility] use at least one of these dose optimization techniques: automated exposure control; mA and/or kV adjustment per patient size (includes targeted exams where dose is matched to clinical indication); or iterativ e reconstruction. DLP: 58.02 mGy.cm DIvol: Mean CTDIvol: 1.10 (mGy) COMPARISON: None available. Diagnostic quality: Markedly suboptimal. Study is significantly degraded by breathing motion artifact . Lungs: Marked pulmonary hyperexpansion from emphysema. 17 mm irregular pulmonary nodule RIGHT upper l obe. Mass extends over a length of 20 mm with spiculations. Limited otherwise by breathing artifact. Patient does have additional benign granulomata. Mild dependent changes at the lung bases. Heart: Normal size heart with no pericardial effusion.. Coronary artery calcifications, moderate. Other findings: Atherosclerotic disease thoracic aorta is moderate. Pulmonary hypertension. No adenop athy identified. Partially visualized RIGHT kidney demonstrates severe atrophy. Mixed density mass LE FT kidney. High density component measures 2.0 x 2.2 cm. Additional low-attenuation. No adrenal mass. Increase in thoracic kyphosis. CT/CT lung screening [id number] IMPRESSION: LUNG-RADS: 4BS-Suspicious with Significant Findings FOLLOW UP: PET/CT recommended OTHER FINDINGS (S MODIFIER): 1. Severe chronic emphysema. 2. Study is limited by motion artifact. 3. Severe atrophy visualized upper pole RIGHT kidney. 4. Mixed density mass LEFT kidney. May be cystic mass with increased protein. Recommend follow-up renal ultrasound evaluation. 5. Pulmonary hypertension.
== END 2022-09-30 11:04 | disposition home or self-care (01) ==
LOC: RAD 11:05
PROVIDERS: PCP Nurse Practitioner Family; Visit Provider Internal Medicine Pulmonary Disease
DX: Z12.2 Encounter for screening for malignant neoplasm of respiratory organs (principal); F17.210 Nicotine dependence, cigarettes, uncomplicated; J43.9 Emphysema, unspecified; N26.1 Atrophy of kidney (terminal); N28.89 Other specified disorders of kidney and ureter; I27.20 Pulmonary hypertension, unspecified
CPT/HCPCS: 71271

== ENCOUNTER → 2022-11-28 12:14 | Outpatient (BNVA) | payer MEDICARE, SELFPAY | PROVIDERS: PCP Nurse Practitioner Family; Visit Provider Internal Medicine Pulmonary Disease | DX: R91.1 Solitary pulmonary nodule (principal) | CPT/HCPCS: 36415; 99214 ==

== ENCOUNTER → 2023-03-23 10:20 | Outpatient (BNVA) | payer MEDICARE, SELFPAY | PROVIDERS: PCP Nurse Practitioner Family; Visit Provider Nurse Practitioner Family | DX: R30.0 Dysuria (principal); I10 Essential (primary) hypertension; R53.83 Other fatigue | CPT/HCPCS: 80053; 81000; 85025 ==

== ENCOUNTER → 2023-07-26 13:49 | Outpatient (BNVA) | payer MEDICARE, SELFPAY | PROVIDERS: PCP Nurse Practitioner Family; Visit Provider Internal Medicine Pulmonary Disease | DX: J43.2 Centrilobular emphysema (principal); J96.11 Chronic respiratory failure with hypoxia; F17.200 Nicotine dependence, unspecified, uncomplicated; R91.1 Solitary pulmonary nodule | CPT/HCPCS: 99214 ==

== ENCOUNTER 2024-06-29 03:18 | Observation (INO) | payer MEDICARE, SELFPAY ==
[2024-06-29] VITALS (26 sets, daily range): BP systolic 99–138; BP diastolic 56–110; PULSE 72–110; RESP 16–31; TEMP 36.1–36.7; O2SAT 88–100; BMI 17.6; BMI 21.0
--- NOTE | 2024-06-29 03:19 | ECG_ITS ---
[facility] 2024[facility] Pat Name: Yulissa Craig Department: Room: 105 Gender: Female Securities Attorney: : 1940 Requested By: Hammad Jackson Order Number: [id number] Ariana MD: RANJIT POOLE Measurements Intervals Lawrence Rate: 108 P: 75 SD: 140 QRS: 70 QRSD: 90 T: 86 QT: 348 QTc: 467 Interpretive Statements SINUS TACHYCARDIA MODERATE ST DEPRESSION [0.05+ mV ST DEPRESSION] Compared to ECG 08/16/2021 08:06:05 Sinus rhythm no longer present ST (T wave) deviation still present Electronically Signed On 06-29-2024 19:32:19 SAND SYSTEM OPERATOR by RANJIT POOLE [id number]
[2024-06-29 03:24] LABS: ABG PCO2 53.5 mmHg (35-45); ABG PH Result 7.31 (7.35-7.45); Alveolar-Arterial Oxygen Gradi 14.8 mmHg (5-10); Arterial Blood Gas Hematocrit 42.2 % (37-47); Blood Gas Allen Test Pos; Blood Gas Sample Site Radial, right; Blood Gas Sample Type Arterial; Carboxyhemoglobin 3.4 %THgb (0.4-20.1); HCO3 ABG 27.1 mmol/L (22-26); HGB O2 Sat 95.2 % (95-100); Ionized Calcium Level - ABG 1.2 mmol/L (1.1-1.4); Methemoglobin 1.3 % (0.4-1.5); Oxygen Device BIPAP; Oxygen Saturation ABG > 99.1; PO2 FiO2 Ratio Arterial Blood 405; Potassium Level - ABG 4.6 mmol/L (3.5-5.0); Total Hemoglobin 13.8 g/dL (12-16)
--- NOTE | 2024-06-29 03:27 | XRR_ITS ---
PROCEDURE INFORMATION: Exam: XR Chest Exam date and time: 06/29/2024 3:37 AM Age: 83 years old Clinical indication: EMS arrival for resp distress. Patient administered bipap on route. History of copd. ; Additional info: SOB TECHNIQUE: Imaging protocol: Radiologic exam of the chest. Views: 1 view. COMPARISON: CT lung screening [id number] 09/30/2022 11:16 AM FINDINGS: Lungs: Hyperventilated lungs. Apically predominant COPD changes. Basilar fibrotic markings. Stable right upper lobe nodule. Pleural spaces: Unremarkable. No pleural effusion. No pneumothorax. Heart/Mediastinum: Unremarkable. No cardiomegaly. Bones/joints: Demineralized bones. Degenerative changes of the visualized osseous structures. XR/XR chest 1V portable [id number] IMPRESSION: No acute findings.
[2024-06-29 03:45] LABS: Basophils % 0.3 %; Hematocrit 40.6 % (36-47); Lymphocytes # 1.1 10^3/uL (0.8-4.8); Lymphocytes % 9.8 %; Mean Corpuscular Hemoglobin 31.9 pg (27-33); Mean Corpuscular Volume 99.8 fl (85-98); Monocytes # 0.6 10^3/uL (0.2-0.9); Monocytes % 5.8 %; Neutrophils # 8.99 10^3/uL (1.8-7.7); Neutrophils % 83.7 %; Nucleated Red Blood Cells % 0 %; Platelet Count 211 10^3/cmm (157-399); Red Blood Count 4.07 10^6/uL (3.85-5.65); White Blood Count 10.73 10^3/uL (3.29-11.43)
--- NOTE | 2024-06-29 03:48 | PC.NURSE ---
Per [facility] EMS Assistant Maintenance Manager Horace, patient received the following medications en route: -6mg dexamethasone -5 albuterol treatments -1 duoneb -0.2 terbutaline -4 zofran IM
--- NOTE | 2024-06-29 03:50 | PC.NURSE ---
This nurse asked the patient, if medically necessary, would the patient consent to intubation in order for the patient. Patient stated that she would be okay with being intubated if necessary. Conversation witnessed by [place] Jaimes.
[2024-06-29] MEDS: ipratropium-albuterol 3 mL Neb INHALATION ×5 (03:56→20:20)
[2024-06-29] MEDS: magnesium sulfate premix 2 GM/50 ML PIGGYBACK IV (04:02)
[2024-06-29] MEDS: methylPREDNISolone sod succ 125 mg/2 mL INJ IV (04:06)
[2024-06-29 04:15] LABS: Anion Gap 18.6 (5-19); Blood Urea Nitrogen 23 mg/dL (8-23); Calcium 9.3 mg/dL (8.5-10.5); Carbon Dioxide 24 mmol/L (22-29); Chloride 95 mmol/L (98-107); Creatinine Clr Calc Pharmacy 43.1704; Glucose 115 mg/dL (65-115); NT Pro B Type Natriuretic Pept 723 pg/mL (0-450); Osmolality Calculated 281 mOsm/kg (285-295); Potassium 4.6 mmol/L (3.5-5.1); Sodium 133 mmol/L (136-145)
--- NOTE | 2024-06-29 04:58 | P.HP_ITS ---
Providers/Chief Complaint 2 Primary Care Provider: SUKHJINDER Anaya Chief Complaint: Resp distress History of Present Illness Yulissa Craig is a 83 year old female with past medical history significant for COPD with chronic hypoxic respiratory failure, hypertension, and hyperlipidemia who presents to the emergency department with shortness of breath. Patient states symptoms wax and wane for several weeks but acutely worsened about 2 days ago. She endorses associated cough, mostly nonproductive. Exertion worsens her symptoms. Rest improves somewhat. She endorses associated weakness, fatigue and malaise. In the emergency department, she was found to be in respiratory distress. She is requiring BiPAP. She was found to influenza A infection. ABG showed CO2 retention with pCO2 of 53.5 mmHg resulting in pH of 7.31. Chest x-ray showed no acute findings. Review of Systems 2 Narrative: A complete review of systems was obtained and is negative except as stated in HPI. Medications/Allergies Home Medications ?Medication ?Instructions ?Recorded ?Confirmed ?Last Taken ?Type albuterol sulfate 90 mcg/actuation 2 inh inhalation Q6 H PRN shortness 07/28/21 01/09/24 07/14/22 Rx aerosol inhaler of breath or wheezing 30 day s #8 grams oxygen-air delivery systems 11/28/22 01/09/24 Unknown History simvastatin 20 mg tablet See Rx Instructions .Route 0 01/17/23 01/09/24 Unknown Rx .COMPLEX #30 tabs tiotropium bromide 18 mcg capsule 1 cap inhalation GLYNN LY 30 days #60 07/26/23 01/09/24 Unknown Rx with inhalation device (Spiriva inhalations with HandiHaler) metoprolol tartrate 50 mg tablet See Rx Instructions . Route 11/27/23 01/09/24 Unknown Rx .COMPLEX #180 tabs azithromycin 250 mg tablet See Rx Instructions PO .COM PLEX #6 01/16/24 Unknown Rx tabs budesonide-formoterol HFA 160 See Rx Instructions .Rou te 05/09/24 Unknown Rx mcg-4.5 mcg/actuation aerosol .COMPLEX #33 grams inhaler (Breyna) ipratropium 0.5 mg-albuterol 3 mg See Rx Instructions .Route 05/21/24 Unknown Rx (2.5 mg base)/3 mL nebulization .COMPLEX #540 mL soln Allergies Allergy/AdvReac Type Severity Reaction Status Date / Time aspirin Allergy Unknown Verified 01/09/24 11:24 Sulfa (Sulfonamide Allergy UNKNOWN Verified 01/09/24 11:24 Antibiotics) PFSH Acute 2 PFSH: Medical History (Updated 06/29/24 @ 05:30 by Chavez Wasserman MD) COPD exacerbation COPD (chronic obstructive pulmonary disease) COPD with acute lower respiratory infection Right upper lobe pulmonary nodule Chronic respiratory failure with hypoxia Bacterial conjunctivitis UTI (urinary tract infection) Low back pain Hyperlipidemia HTN (hypertension) Family History Daughter Cancer Son Cancer Diabetes Denies family history of CAD (coronary artery disease) Chronic kidney disease (CKD) Lung disease Social History Smoking and tobacco/nicotine status: current every day tobacco/nicotine user cigarettes Packs smoked per day: 0.5 Years cigarettes smoked: 65 Alcohol intake: never Substance/Drug Use: never Adopted: No Lives independently: Yes Household members: other Details: Roommate Marital status: / Current occupational status: unemployed Do you think of yourself as: Straight/Heterosexual Current gender identity: Female Vitals/I&O/Wt Last Vital Signs Pulse 89 06/29/24 04:52 Resp 17 06/29/24 03:56 BP 112/69 06/29/24 04:00 Pulse Ox 99 06/29/24 04:52 O2 Del Method BiPAP 06/29/24 03:56 FiO2 30 06/29/24 04:52 06/28/24 06/28/24 06/29/24 14:59 22:59 06:59 Intake Total 0 / 0 Balance 0 / 0 Weight last 48 hrs Weight 45.359 kg Physical Exam 2 Narrative: General: Patient is awake. Ill-appearing. On BiPAP which complicates communication somewhat. Head: Normocephalic. Atraumatic. EOM intact. Dry mucous membranes. Neck: No JVD. Cardiovascular: RRR. No gallops. No murmurs. No peripheral edema. Lungs: Moderate air movement. BiPAP noises auscultated throughout lung brown. No crackles. Faint wheeze. Skin: No jaundice. No rashes. Abdomen: Normal bowel sounds, abdomen soft and nontender. Extremities: No cyanosis or clubbing. Musculoskeletal: No swollen or erythematous joints. Neurological: Moves all 4 extremities. No myoclonus. Data 06/29/24 03:32 06/29/24 03:32 A&P Assessment and plan (1) COPD (chronic obstructive pulmonary disease): Acute COPD exacerbation with acute on chronic hypoxic respiratory failure Superimposed acute hypercapnic respiratory failure requiring noninvasive mechanical ventilation Triggers influenza A infection Chest x-ray negative for infiltrate Start systemic steroids Pulmicort and DuoNebs BiPAP support as needed Supportive care Qualifiers: COPD type: emphysema Emphysema type: centrilobular Qualified Code(s): J43.2 - Centrilobular emphysema (2) Influenza A: Droplet precautions Start Tamiflu (3) Fatigue: Debility and physical deconditioning secondary to acute illness Treat underlying infection Optimize respiratory status (4) HTN (hypertension): Continue home meds Qualifiers: Hypertension type: unspecified Qualified Code(s): I10 - Essential (primary) hypertension (5) Hyperlipidemia: Continue formulary statin Plan DVT prophylaxis: Lovenox PDMP PDMP Reviewed: Not Reviewed Attestations 2 Medical Necessity Statement*: Patient presents with shortness of breath, found to have COPD with hypercapnia requiring BiPAP secondary for influenza A for which expected hospitalization not to cross 2 midnights for IV steroids, Tamiflu, respiratory support and supportive care. Coding Level of Care Code Acute Code for [facility] Diagnoses Centrilobular emphysema J43.2 COPD type: emphysema Emphysema type: centrilobular Influenza A J10.1 Fatigue R53.83 Hypertension, unspecified type I10 Hypertension type: unspecified Hyperlipidemia E78.5
[2024-06-29 05:02] LABS: Influenza A POSITIVE (Negative); Influenza B NEGATIVE (Negative); Respiratory Syncytial Virus Ce NEGATIVE (Negative); SARS-CoV-2 PCR NEGATIVE (Negative)
--- NOTE | 2024-06-29 05:09 | W.ED.SOB ---
HPI - SOB/Dyspnea General: Chief Complaint: Shortness of Breath/Dyspnea Stated Complaint: Resp distress Time Seen by Provider: 06/29/24 03:24 History of Present Illness: HPI Narrative: This patient is an 83-year-old white female who presents to the emergency department with severe shortness of breath/respiratory distress. Patient states she has been ill for the past 2 to 3 days. She has a history of COPD. She was brought in by EMS. They did administer an albuterol nebulizer treatment and placed her on BiPAP due to her respiratory distress. Related Data Home Medications ?Medication ?Instructions ?Recorded ?Confirmed oxygen-air delivery systems 11/28/22 01/09/24 Previous Rx's ?Medication ?Instructions ?Recorded albuterol sulfate 90 mcg/actuation 2 inh inhalation Q6H PRN shortness 07/28/21 aerosol inhaler of breath or wheezing 30 days #8 grams simvastatin 20 mg tablet See Rx Instructions .Route 01/17/23 .COMPLEX #30 tabs tiotropium bromide 18 mcg capsule 1 cap inhalation DAILY 30 days #60 07/26/23 with inhalation device (Spiriva inhalations with HandiHaler) metoprolol tartrate 50 mg tablet See Rx Instructions .Route 11/27/23 .COMPLEX #180 tabs azithromycin 250 mg tablet See Rx Instructions PO .COMPLEX #6 01/16/24 tabs budesonide-formoterol HFA 160 See Rx Instructions .Route 05/09/24 mcg-4.5 mcg/actuation aerosol .COMPLEX #33 grams inhaler (Breyna) ipratropium 0.5 mg-albuterol 3 mg See Rx Instructions .Route 05/21/24 (2.5 mg base)/3 mL nebulization .COMPLEX #540 mL soln Allergies Allergy/AdvReac Type Severity Reaction Status Date / Time aspirin Allergy Unknown Verified 01/09/24 11:24 Sulfa (Sulfonamide Allergy UNKNOWN Verified 01/09/24 11:24 Antibiotics) Review of Systems General: Reports: 10 or more systems reviewed and unremarkable except in HPI and below Const: Reports: fatigue and malaise Resp: Reports: dyspnea, non-productive cough and wheezing [facility] ED PFSH: Medical History Hyperlipidemia HTN (hypertension) Family History Daughter Cancer Son Cancer Diabetes Denies family history of CAD (coronary artery disease) Chronic kidney disease (CKD) Lung disease Social History Smoking and tobacco/nicotine status: current every day tobacco/nicotine user cigarettes Packs smoked per day: 0.5 Years cigarettes smoked: 65 Alcohol intake: never Substance/Drug Use: never Adopted: No Lives independently: Yes Household members: other Details: Roommate Marital status: / Current occupational status: unemployed Do you think of yourself as: Straight/Heterosexual Current gender identity: Female Physical Exam Const: COMMON NORMALS: patient oriented x3 GENERAL APPEARANCE: cooperative HENMT: COMMON NORMALS: normocephalic, atraumatic, moist oral mucous membranes and oropharynx normal HEAD & SCALP: normal to inspection, normocephalic and atraumatic FACE & SINUS: normal facial exam NOSE: Nasal discharge present Eye: COMMON NORMALS: Equal, round and reactive pupils present, EOMs intact bilaterally and conjunctivae normal GENERAL EYE: appearance normal, both eyes and all related structures CONJUNCTIVA: Yes conjunctivae normal PUPIL: Yes Equal, round and reactive pupils present Neck/C-Spine: COMMON NORMALS: supple and no JVD Chest: COMMONS NORMALS: normal inspection of the chest Resp: EFFORT & INSPECTION: Yes tachypneic, Yes respiratory distress and Yes labored AUSCULTATION: wheezes Cardio: COMMON NORMALS: no JVD, regular rate, regular rhythm, No gallops present (Cardio), No murmurs present (Cardio) and No rub (Cardio) RATE: regular rate RHYTHM: regular rhythm GI: COMMON NORMALS: Normal to inspection, nondistended, normoactive bowel sounds present, Soft to palpation and non-tender AUSCULTATION: Yes normoactive bowel sounds PALPATION: Yes Soft to palpation : COMMON NORMALS: Yes no CVA tenderness BLADDER/KIDNEY EXAM: Yes no CVA tenderness Back/Pelvis: COMMON NORMALS: no CVA tenderness and thoracic and lumbar spine normal to inspection Extremity: COMMON NORMALS: normal to inspection Neuro: COMMON NORMALS: patient oriented x3 and CN's II-XII intact bilaterally Psych: COMMON NORMALS: mental status grossly normal, Normal thought process present and cooperative THOUGHT PROCESS: Normal thought process present Skin: COMMON NORMALS: no rashes or lesions noted, turgor normal and no jaundice GENERAL SKIN EXAM: no rashes or lesions noted and turgor normal Course Vital Signs: Vital signs: Vital Signs Pulse Rate 89 06/29/24 04:52 Respiratory Rate 17 06/29/24 03:56 Blood Pressure 110/75 06/29/24 04:30 Pulse Oximetry 99 06/29/24 04:52 Oxygen Delivery Me thod BiPAP 06/29/24 04:30 Fraction of Inspir ed Oxygen 30 06/29/24 04:52 MDM - SOB/Dyspnea Medical Decision Making Patient was given a DuoNeb treatment and 125 mg of Solu-Medrol IV. She was maintained on BiPAP. EKG revealed sinus tach with no significant ST segment abnormalities. Chest x-ray did not reveal any infiltrates. CBC and BMP were normal. BNP was 723. She tested positive for influenza A. Patient will need to be admitted. I discussed the case with Dr. Wasserman. Patient will be transferred to the floor shortly. She is stable. Lab Data 06/29/24 03:32 06/29/24 03:32 Labs/Radiology: Radiology Impressions Chest X-Ray 06/29/24 03:27 IMPRESSION: No acute findings. Laboratory Results WBC 10.73 10^3/uL (3.29-11.43) 06/29/24 03:32 RBC 4.07 10^6/uL (3.85-5.65) 06/29/24 03:32 Hgb 13.00 g/dL (11.27-16.99) 06/29/24 03:32 Hct 40.6 % (36-47) 06/29/24 03:32 MCV 99.8 fl (85-98) H 06/29/24 03:32 MCH 31.9 pg (27-33) 06/29/24 03:32 MCHC 32.0 g/dL (30-55) 06/29/24 03:32 RDW 13.0 % (12.1-15.1) 06/29/24 03:32 Plt Count 211 10^3/cmm (157-399) 06/29/24 03:32 MPV 10.0 fL (7.4-10.4) 06/29/24 03:32 Neut % (Auto) 83.7 % 06/29/24 03:32 Lymph % (Auto) 9.8 % 06/29/24 03:32 [place] % (Auto) 5.8 % 06/29/24 03:32 Eos % (Auto) 0.0 % 06/29/24 03:32 Baso % (Auto) 0.3 % 06/29/24 03:32 Neut # (Auto) 8.99 10^3/uL (1.8-7.7) H 06/29/24 03:32 Lymph # (Auto) 1.1 10^3/uL (0.8-4.8) 06/29/24 03:32 [place] # (Auto) 0.6 10^3/uL (0.2-0.9) 06/29/24 03:32 Eos # (Auto) 0.0 10^3/uL (0.0-0.8) 06/29/24 03:32 Baso # (Auto) 0.0 10^3/uL (0.0-0.1) 06/29/24 03:32 Nucleated RBC % (auto) 0 % 06/29/24 03:32 Nucleated RBCs # 0.0 /100WBC 06/29/24 03:32 Specimen Type Arterial 06/29/24 03:14 Sample Site Radial, right 06/29/24 03:14 ABG pH 7.31 (7.35-7.45) L 06/29/24 03:14 ABG pCO2 53.5 mmHg (35-45) H 06/29/24 03:14 ABG pO2 243.0 mmHg (80.0-100.0) H 06/29/24 03:14 ABG PO2/FiO2 Ratio 405 06/29/24 03:14 ABG HCO3 27.1 mmol/L (22-26) H 06/29/24 03:14 ABG O2 Saturation > 99.1 06/29/24 03:14 ABG Base Excess 0.0 mmol/L (-2.0-2.0) 06/29/24 03:14 Jovan Test Pos 06/29/24 03:14 A-a O2 Gradient 14.8 mmHg (5-10) H 06/29/24 03:14 Hematocrit 42.2 % (37-47) 06/29/24 03:14 Hgb O2 Saturation 95.2 % (95-100) 06/29/24 03:14 Carboxyhemoglobin 3.4 %THgb (0.4-20.1) 06/29/24 03:14 Methemoglobin 1.3 % (0.4-1.5) 06/29/24 03:14 Total Hemoglobin 13.8 g/dL (12-16) 06/29/24 03:14 Sodium 139.0 mmol/L (131-143) 06/29/24 03:14 Potassium 4.6 mmol/L (3.5-5.0) 06/29/24 03:14 Glucose 114.0 mg/dL (70-115) 06/29/24 03:14 Ionized Calcium 1.2 mmol/L (1.1-1.4) 06/29/24 03:14 O2 Delivery Device Bipap 06/29/24 03:14 FiO2 60.0 % 06/29/24 03:14 Maintenance Welder ID [email or web address] 06/29/24 03:14 Sodium 133 mmol/L (136-145) L 06/29/24 03:32 Potassium 4.6 mmol/L (3.5-5.1) 06/29/24 03:32 Chloride 95 mmol/L (98-107) L 06/29/24 03:32 Carbon Dioxide 24 mmol/L (22-29) 06/29/24 03:32 Anion Gap 18.6 (5-19) 06/29/24 03:32 BUN 23 mg/dL (8-23) 06/29/24 03:32 Creatinine 0.8 mg/dL (0.5-0.9) 06/29/24 03:32 GFR Calculation Not Reportable 06/29/24 03:32 Glucose 115 mg/dL (65-115) 06/29/24 03:32 Calculated Osmolality 281 mOsm/kg (285-295) L 06/29/24 03:32 Calcium 9.3 mg/dL (8.5-10.5) 06/29/24 03:32 NT-Pro-B Natriuret Pep 723 pg/mL (0-450) H 06/29/24 03:32 Coronavirus (PCR) Negative (Negative) 06/29/24 03:52 Influenza A (PCR) Positive (Negative) 06/29/24 03:52 Influenza Type B (PCR) Negative (Negative) 06/29/24 03:52 RSV (PCR) Negative (Negative) 06/29/24 03:52 All radiology interpretation(s) finalized by discharge Discharge Plan Discharge Patient Disposition: Admitted As Inpatient Clinical Impression: Influenza A, COPD (chronic obstructive pulmonary disease) Condition: Stable Coding Level of Care Code ED [employer] Agent for Sydney Guillen
--- NOTE | 2024-06-29 05:09 | PC.NURSE ---
0350: Patient states that she would be okay with intubation if medically necessary. Conversation witnessed with Annalise MAURO.
[2024-06-29] MEDS: budesonide 0.5 mg/2 mL Neb INHALATION ×2 (07:48→20:20)
[2024-06-29 08:00] LABS: Procalcitonin 0.14 ng/mL (0-0.5)
[2024-06-29] MEDS: metoprolol tartrate 50 mg Tablet PO ×2 (08:14→20:35)
[2024-06-29] MEDS: oseltamivir phosphate 75 mg Capsule PO ×2 (08:14→17:03)
[2024-06-29] MEDS: methylPREDNISolone sod succ 40 mg/mL INJ IVP ×2 (08:14→14:43)
[2024-06-29] MEDS: enoxaparin 40 mg/0.4 mL Syringe SUBCUT (08:14)
--- NOTE | 2024-06-29 10:07 | PC.CHAP ---
Pastoral Care Encounter/Spiritual Assessment Type of Contact [] Declined b operator visit [] Patient/Family/Request visit [] Outpatient visit [] Follow-up visit [] Physician referral [] Code/Alert [] Routine visit [] Staff referral [] Actively dying [] Patient sleeping [] Family support [] [] Out of room [] Palliative care [] [] Receiving care in room [] Pre-surgical visit [] Trauma [] Long length of stay [] ICU visit [X] Other:STOP Relational/Emotional Strength [] Patient feels connected with others/family/visitors/staff [] Distress [] Loneliness/isolation [] Abandonment Spirituality of Patient [] Person of Marjan [] Attends Sabianism of their Marjan [] Believes in Prayer [] Reads Bible or Taoism materials [] There are Spiritual issues to be addressed Financial Sales Advisor Interventions [] Prayer [] Active listening [] Non-anxious presence [] Spiritual/emotional support [] Crisis/trauma care [] Spiritual counseling [] Bereavement support [] Provided bereavement packet [] Provided Bible/devotional materials [] Provided toy/stuffed animal, coloring book to patient or family member [] Provided Communion [] Anointing/[place] [] Salvation [] Completed spiritual assessment [] Other: Impact on Illness or Injury [] Angry [] Fearful [] Anxious [] Often cries [] Exhaustion [] Unable to work [] Unable to attend shinto [] Unable to walk/stand [] Unable to read [] Unable to drive [] Unable to eat/drink [] Unable to sleep [] Unable to be with family [] Patient intubated [] Other: Summary Time spent with patient
[2024-06-29 10:33] LABS: ABG PCO2 53.5 mmHg (35-45); ABG PH Result 7.32 (7.35-7.45); Alveolar-Arterial Oxygen Gradi 9.2 mmHg (5-10); Arterial Blood Gas Hematocrit 38.8 % (37-47); Base Excess ABG 0.9 mmol/L (-2.0-2.0); Blood Gas Operator Identificat AMH; Blood Gas Sample Site Brachial, right; Blood Gas Sample Type Arterial; Carboxyhemoglobin 1.9 %THgb (0.4-20.1); HCO3 ABG 27.8 mmol/L (22-26); HGB O2 Sat 93.2 % (95-100); Ionized Calcium Level - ABG 1.2 mmol/L (1.1-1.4); Methemoglobin 0.6 % (0.4-1.5); Oxygen Device BIPAP; Oxygen Saturation ABG 95.5; PO2 ABG 76.3 mmHg (80.0-100.0); PO2 FiO2 Ratio Arterial Blood 254; Potassium Level - ABG 4.9 mmol/L (3.5-5.0); Total Hemoglobin 12.7 g/dL (12-16)
[2024-06-29 14:30] LABS: Amphetamines Screen Urine Negative (Negative); Barbiturates Screen Urine Negative (Negative); Benzodiazepines Screen Urine Negative (Negative); Cocaine Screen Urine Negative (Negative); Opiate Screen Urine Negative (Negative); PCP Screen Urine Negative (Negative); THC Screen Urine Negative (Negative)
--- NOTE | 2024-06-29 15:21 | PM.MISC ---
Miscellaneous Note Note: This morning. ABG reviewed from this morning. Patient currently on BiPAP at 2096%. She states she can breathe slightly easier compared to before. I will switch steroids to Solu-Medrol every 12 hours.
[2024-06-29] MEDS: atorvastatin 40 mg Tablet PO (20:35)
[2024-06-30] VITALS (14 sets, daily range): BP systolic 113–155; BP diastolic 61–83; PULSE 75–92; RESP 16–31; TEMP 36.1–36.7; O2SAT 90–99
[2024-06-30] MEDS: ipratropium-albuterol 3 mL Neb INHALATION ×6 (00:24→20:33)
[2024-06-30] MEDS: hyDROXYzine 25 mg Capsule PO (01:00)
[2024-06-30] MEDS: methylPREDNISolone sod succ 40 mg/mL INJ IVP ×2 (03:13→17:00)
[2024-06-30 03:48] LABS: Basophils % 0.1 %; Hematocrit 40.7 % (36-47); Lymphocytes # 0.7 10^3/uL (0.8-4.8); Lymphocytes % 7.6 %; Mean Corpuscular HGB Conc 31.7 g/dL (30-55); Mean Corpuscular Hemoglobin 32.4 pg (27-33); Mean Corpuscular Volume 102.3 fl (85-98); Mean Platelet Volume 10.8 fL (7.4-10.4); Monocytes # 0.8 10^3/uL (0.2-0.9); Monocytes % 9.7 %; Neutrophils # 7.03 10^3/uL (1.8-7.7); Neutrophils % 82.2 %; Nucleated Red Blood Cells % 0 %; Platelet Count 216 10^3/cmm (157-399); Red Blood Count 3.98 10^6/uL (3.85-5.65); White Blood Count 8.55 10^3/uL (3.29-11.43)
[2024-06-30 03:58] LABS: Anion Gap 15.9 (5-19); Blood Urea Nitrogen 35 mg/dL (8-23); Calcium 9.4 mg/dL (8.5-10.5); Carbon Dioxide 28 mmol/L (22-29); Chloride 97 mmol/L (98-107); Creatinine Clr Calc Pharmacy 41.0416; Glucose 103 mg/dL (65-115); Magnesium 2.2 mg/dL (1.7-2.3); Osmolality Calculated 290 mOsm/kg (285-295); Potassium 4.9 mmol/L (3.5-5.1); Sodium 136 mmol/L (136-145)
[2024-06-30] MEDS: budesonide 0.5 mg/2 mL Neb INHALATION ×2 (08:04→20:33)
[2024-06-30] MEDS: AZITHROMYCIN ADD-Vantage 500 MG in 0.9% NaCl ADD-Vantage 250 ML 250 MG IV (09:01)
[2024-06-30] MEDS: enoxaparin 40 mg/0.4 mL Syringe SUBCUT (09:02)
[2024-06-30] MEDS: cefTRIAXone 1,000 mg SDV 1000 MG IVP (09:02)
[2024-06-30] MEDS: metoprolol tartrate 50 mg Tablet PO ×2 (09:02→20:56)
[2024-06-30] MEDS: oseltamivir phosphate 75 mg Capsule PO ×2 (09:02→17:59)
--- NOTE | 2024-06-30 14:44 | P.PN_ITS ---
Subjective 2 Subjective: Seen this morning. Patient remains on BiPAP and maintaining saturations She says she is somewhat feeling better. Vitals/I&O/Wt Last Vital Signs Temp 97.6 F 06/30/24 11:26 Pulse 77 06/30/24 11:30 Resp 20 H 06/30/24 11:30 BP 118/68 06/30/24 11:26 Pulse Ox 98 06/30/24 11:30 O2 Del Method Nasal Cannula 06/30/24 11:30 O2 Flow Rate 4 06/30/24 11:30 FiO2 30 06/30/24 08:05 06/29/24 06/30/24 06/30/24 22:59 06:59 14:59 Intake Total 250 / 250 Output Total 800 / 800 400 / 1200 Balance -800 / -750 -400 / -1150 250 / 250 Weight last 48 hrs Weight 50.984 kg Weight 53.977 kg Weight 45.359 kg Physical Exam 2 Narrative: General: Patient is awake. Ill-appearing. On BiPAP which complicates communication somewhat. Head: Normocephalic. Atraumatic. EOM intact. Dry mucous membranes. Cardiovascular: RRR. No gallops. No murmurs. No peripheral edema. Lungs: BiPAP noises auscultated throughout lung brown. No crackles. Faint wheeze. Decreased bilateral air entry. Abdomen: Normal bowel sounds, abdomen soft and nontender. Extremities: No cyanosis or clubbing. Musculoskeletal: No swollen or erythematous joints. Urinary Catheter Management: Cardoza: Cath Placed During This Visit: yes Reason for Continuing Indwelling Catheter: Other Urinary Catheter Date of Insertion: 06/29/24 Urinary Catheter Time of Insertion: 18:00 Data 06/30/24 01:59 06/30/24 01:59 A&P Assessment and plan (1) COPD (chronic obstructive pulmonary disease): Acute COPD exacerbation with acute on chronic hypoxic respiratory failure Superimposed acute hypercapnic respiratory failure requiring noninvasive mechanical ventilation Triggers influenza A infection Chest x-ray negative for infiltrate Start systemic steroids Pulmicort and DuoNebs BiPAP support as needed Supportive care Qualifiers: COPD type: emphysema Emphysema type: centrilobular Qualified Code(s): J43.2 - Centrilobular emphysema (2) Influenza A: Droplet precautions Start Tamiflu (3) Fatigue: Debility and physical deconditioning secondary to acute illness Treat underlying infection Optimize respiratory status (4) HTN (hypertension): Continue home meds Qualifiers: Hypertension type: unspecified Qualified Code(s): I10 - Essential (primary) hypertension (5) Hyperlipidemia: Continue formulary statin Plan DVT prophylaxis: Lovenox 06/30/2024 Seen this morning. Continue methylprednisolone 40 every 12 hours, add ceftriaxone, azithromycin for empiric coverage. Chest x-ray on admission did not show any acute findings. I will check CTA chest to rule out PE Continue supportive care at this time. Patient is agreeable to intubation if needed. Continue as per assessment and plan from H&P at this time. PDMP PDMP Reviewed: Not Reviewed Attestations 2 Medical Necessity Statement*: Patient presents with shortness of breath, found to have COPD with hypercapnia requiring BiPAP secondary for influenza A for which expected hospitalization not to cross 2 midnights for IV steroids, Tamiflu, respiratory support and supportive care. Diagnoses Centrilobular emphysema J43.2 COPD type: emphysema Emphysema type: centrilobular Influenza A J10.1 Fatigue R53.83 Hypertension, unspecified type I10 Hypertension type: unspecified Hyperlipidemia E78.5
--- NOTE | 2024-06-30 14:44 | PC.NURSE ---
Provider is updated that patient is continually trying to get up and pulling at her dainelle and IV's. Nursing would like a sitter. Order is given.
[2024-06-30] MEDS: atorvastatin 40 mg Tablet PO (20:56)
[2024-07-01] VITALS (7 sets, daily range): BP systolic 116–137; BP diastolic 66–85; PULSE 82–88; RESP 16–23; TEMP 36.7–36.9; O2SAT 87–99
[2024-07-01] MEDS: methylPREDNISolone sod succ 40 mg/mL INJ IVP (02:28)
[2024-07-01 05:27] LABS: Basophils % 0.1 %; Lymphocytes # 0.6 10^3/uL (0.8-4.8); Lymphocytes % 6.9 %; Mean Corpuscular HGB Conc 31.2 g/dL (30-55); Mean Corpuscular Hemoglobin 32.1 pg (27-33); Mean Corpuscular Volume 102.9 fl (85-98); Mean Platelet Volume 10.7 fL (7.4-10.4); Monocytes # 0.5 10^3/uL (0.2-0.9); Monocytes % 6.4 %; Neutrophils # 6.99 10^3/uL (1.8-7.7); Neutrophils % 86.2 %; Nucleated Red Blood Cells % 0 %; Platelet Count 188 10^3/cmm (157-399); Red Blood Count 4.08 10^6/uL (3.85-5.65); Red Cell Distribution Width 12.7 % (12.1-15.1); White Blood Count 8.11 10^3/uL (3.29-11.43)
[2024-07-01 05:36] LABS: D Dimer 0.75 ug/mLFEU (0-0.59)
[2024-07-01 05:47] LABS: Anion Gap 15.6 (5-19); Blood Urea Nitrogen 34 mg/dL (8-23); Calcium 9.1 mg/dL (8.5-10.5); Carbon Dioxide 29 mmol/L (22-29); Chloride 97 mmol/L (98-107); Creatinine Clr Calc Pharmacy 45.1134; Glucose 115 mg/dL (65-115); Osmolality Calculated 293 mOsm/kg (285-295); Potassium 4.6 mmol/L (3.5-5.1); Sodium 137 mmol/L (136-145)
[2024-07-01] MEDS: ipratropium-albuterol 3 mL Neb INHALATION ×2 (07:53→12:03)
[2024-07-01] MEDS: budesonide 0.5 mg/2 mL Neb INHALATION (07:53)
[2024-07-01] MEDS: enoxaparin 40 mg/0.4 mL Syringe SUBCUT (07:56)
[2024-07-01] MEDS: guaiFENesin 600 mg Tablet 1200 MG PO (07:57)
[2024-07-01] MEDS: oseltamivir phosphate 75 mg Capsule PO (07:57)
[2024-07-01] MEDS: metoprolol tartrate 50 mg Tablet PO (07:57)
[2024-07-01] MEDS: benzonatate 100 mg Capsule 200 MG PO (07:57)
[2024-07-01] MEDS: AZITHROMYCIN ADD-Vantage 500 MG in 0.9% NaCl ADD-Vantage 250 ML 250 MG IV (07:58)
[2024-07-01] MEDS: cefTRIAXone 1,000 mg SDV 1000 MG IVP (07:58)
--- NOTE | 2024-07-01 08:55 | PC.CHAP ---
Pastoral Care Encounter/Spiritual Assessment Type of Contact [] Declined flat screen worker visit [] Patient/Family/Request visit [] Outpatient visit [] Follow-up visit [] Physician referral [] Code/Alert [x] Routine visit [] Staff referral [] Actively dying [] Patient sleeping [] Family support [] [] Out of room [] Palliative care [] [] Receiving care in room [] Pre-surgical visit [] Trauma [] Long length of stay [] ICU visit [] Other: Relational/Emotional Strength [] Patient feels connected with others/family/visitors/staff [] Distress [] Loneliness/isolation [] Abandonment Spirituality of Patient [] Person of Marjan [] Attends Yazidi of their Marjan [] Believes in Prayer [] Reads Bible or Evangelical materials [] There are Spiritual issues to be addressed Mold Yarn Supervisor Interventions [x] Prayer [] Active listening [] Non-anxious presence [] Spiritual/emotional support [] Crisis/trauma care [] Spiritual counseling [] Bereavement support [] Provided bereavement packet [] Provided Bible/devotional materials [] Provided toy/stuffed animal, coloring book to patient or family member [] Provided Communion [] Anointing/[place] [] Salvation [] Completed spiritual assessment [] Other: Impact on Illness or Injury [] Angry [] Fearful [] Anxious [] Often cries [] Exhaustion [] Unable to work [] Unable to attend yazidi [] Unable to walk/stand [] Unable to read [] Unable to drive [] Unable to eat/drink [] Unable to sleep [] Unable to be with family [] Patient intubated [] Other: Summary precaution Time spent with patient
--- NOTE | 2024-07-01 13:47 | PC.NURSE ---
Patient needed alot of reinforcement for the discharge information. Boyfriend left to go and get the car said that he would help her with the medications if it was in writing, then left the room. Patient also needed reinforcement to keep her oxygen on, she kept taking it off. Patient's son called to talk to patient, patient told him that she was being discharged and he was upset not wanting her to go home yet. He is not on the contact list.
--- NOTE | 2024-07-01 15:00 | PM.DCS ---
Discharge Providers Date of Admission: 06/29/24 05:27 Date of Discharge: July 01, 2024 Attending Provider at Admission: Chavez Wasserman MD Attending Provider at Discharge: Rona Armstrong MD Primary Care Provider: SUKHJINDER Anaya Diagnoses at Discharge Discharge Diagnosis (1) COPD (chronic obstructive pulmonary disease): Status: Acute Qualifiers: COPD type: emphysema Emphysema type: centrilobular Qualified Code(s): J43.2 - Centrilobular emphysema (2) Influenza A: Status: Acute (3) Fatigue: Status: Acute (4) HTN (hypertension): Status: Acute Qualifiers: Hypertension type: unspecified Qualified Code(s): I10 - Essential (primary) hypertension (5) Hyperlipidemia: Status: Acute Reason for Visit Reason for Visit: Resp distress Hospital Course Hospital Course Yulissa Craig is a 83 year old female with past medical history significant for COPD with chronic hypoxic respiratory failure, hypertension, and hyperlipidemia who presents to the emergency department with shortness of breath. Patient states symptoms wax and wane for several weeks but acutely worsened about 2 days ago. She endorses associated cough, mostly nonproductive. She tested positive for influenza A. Chest x-ray was negative for any infiltrates she initially required BiPAP. ABG showed hypercapnic respiratory failure. Overall impression that of COPD exacerbation triggered by acute viral illness. She received treatment with Tamiflu, systemic steroids through the IV, IV antibiotics ceftriaxone and azithromycin. These are being transitioned to a prednisone taper, Tamiflu for remaining 3 days, and levofloxacin. Patient reports that she was on continuous oxygen until recently, review of outpatient pulmonology notes show that she requires 2 L/min, however states since the electric meter repairer left, she has not had a refill on her prescription. She has therefore not had a consistent supply. Home oxygen evaluation was completed today. She qualified for 3 L/min supplemental O2 which is being arranged. Patient feels improved compared to admission. She requested refills on Symbicort which were also provided to her. Physical Exam Narrative: General: No acute distress, AO x3 HEENT: PERRLA, pupils bilaterally equal and reactive, pallors not present Chest: Normal vesicular breath sounds, no added sounds, equal good air entry bilaterally CVS: S1-S2 regular, no murmurs, no tachycardia, no gallops, no rubs Abdomen: Soft, nontender, no organomegaly, bowel sounds present Neuro: No focal deficits, no facial deformity, AO x3, power 5/5 in all limbs Urinary Catheter Management: Cardoza: Cath Placed During This Visit: yes, but has since been removed by the nurse Reason for Continuing Indwelling Catheter: Accurate Measurement of Urinary Output in Critically Ill Patients Urinary Catheter Date of Insertion: 06/29/24 Urinary Catheter Time of Insertion: 18:00 Date Urinary Catheter Removed: 07/01/24 Time Urinary Catheter Discontinued: 13:14 Discharge Data Studies Completed and Pending Completed Studies During Hospitalization Category Date Time Status XR chest 1V portable [id number] Stat Exams 06/29/24 03:27 Completed Radiology Impressions Chest X-Ray 06/29/24 03:27 IMPRESSION: No acute findings. Laboratory Results WBC 8.11 10^3/uL (3.29-11.43) 07/01/24 04:55 RBC 4.08 10^6/uL (3.85-5.65) 07/01/24 04:55 Hgb 13.10 g/dL (11.27-16.99) 07/01/24 04:55 Hct 42.0 % (36-47) 07/01/24 04:55 MCV 102.9 fl (85-98) H 07/01/24 04:55 MCH 32.1 pg (27-33) 07/01/24 04:55 MCHC 31.2 g/dL (30-55) 07/01/24 04:55 RDW 12.7 % (12.1-15.1) 07/01/24 04:55 Plt Count 188 10^3/cmm (157-399) 07/01/24 04:55 MPV 10.7 fL (7.4-10.4) H 07/01/24 04:55 Neut % (Auto) 86.2 % 07/01/24 04:55 Lymph % (Auto) 6.9 % 07/01/24 04:55 [place] % (Auto) 6.4 % 07/01/24 04:55 Eos % (Auto) 0.0 % 07/01/24 04:55 Baso % (Auto) 0.1 % 07/01/24 04:55 Neut # (Auto) 6.99 10^3/uL (1.8-7.7) 07/01/24 04:55 Lymph # (Auto) 0.6 10^3/uL (0.8-4.8) L 07/01/24 04:55 [place] # (Auto) 0.5 10^3/uL (0.2-0.9) 07/01/24 04:55 Eos # (Auto) 0.0 10^3/uL (0.0-0.8) 07/01/24 04:55 Baso # (Auto) 0.0 10^3/uL (0.0-0.1) 07/01/24 04:55 Nucleated RBC % (auto) 0 % 07/01/24 04:55 Nucleated RBCs # 0.0 /100WBC 07/01/24 04:55 D-Dimer 0.75 ug/mLFEU (0-0.59) H 07/01/24 04:55 Specimen Type Arterial 06/29/24 10:22 Sample Site Brachial, right 06/29/24 10:22 ABG pH 7.32 (7.35-7.45) L 06/29/24 10:22 ABG pCO2 53.5 mmHg (35-45) H 06/29/24 10:22 ABG pO2 76.3 mmHg (80.0-100.0) L 06/29/24 10:22 ABG PO2/FiO2 Ratio 254 06/29/24 10:22 ABG HCO3 27.8 mmol/L (22-26) H 06/29/24 10:22 ABG O2 Saturation 95.5 06/29/24 10:22 ABG Base Excess 0.9 mmol/L (-2.0-2.0) 06/29/24 10:22 Jovan Test N/a 06/29/24 10:22 A-a O2 Gradient 9.2 mmHg (5-10) 06/29/24 10:22 Hematocrit 38.8 % (37-47) 06/29/24 10:22 Hgb O2 Saturation 93.2 % (95-100) L 06/29/24 10:22 Carboxyhemoglobin 1.9 %THgb (0.4-20.1) 06/29/24 10:22 Methemoglobin 0.6 % (0.4-1.5) 06/29/24 10:22 Total Hemoglobin 12.7 g/dL (12-16) 06/29/24 10:22 Sodium 136.0 mmol/L (131-143) 06/29/24 10:22 Potassium 4.9 mmol/L (3.5-5.0) 06/29/24 10:22 Glucose 135.0 mg/dL (70-115) H 06/29/24 10:22 Ionized Calcium 1.2 mmol/L (1.1-1.4) 06/29/24 10:22 O2 Delivery Device Bipap 06/29/24 10:22 FiO2 30.0 % 06/29/24 10:22 Microwave Radio Technician ID Amh 06/29/24 10:22 Sodium 137 mmol/L (136-145) 07/01/24 04:55 Potassium 4.6 mmol/L (3.5-5.1) 07/01/24 04:55 Chloride 97 mmol/L (98-107) L 07/01/24 04:55 Carbon Dioxide 29 mmol/L (22-29) 07/01/24 04:55 Anion Gap 15.6 (5-19) 07/01/24 04:55 BUN 34 mg/dL (8-23) H 07/01/24 04:55 Creatinine 0.8 mg/dL (0.5-0.9) 07/01/24 04:55 GFR Calculation Not Reportable 07/01/24 04:55 Glucose 115 mg/dL (65-115) 07/01/24 04:55 Calculated Osmolality 293 mOsm/kg (285-295) 07/01/24 04:55 Calcium 9.1 mg/dL (8.5-10.5) 07/01/24 04:55 Phosphorus 4.0 mg/dL (2.5-4.5) 06/30/24 01:59 Magnesium 2.0 mg/dL (1.7-2.3) 07/01/24 04:55 NT-Pro-B Natriuret Pep 723 pg/mL (0-450) H 06/29/24 03:32 Procalcitonin 0.14 ng/mL (0-0.5) 06/29/24 03:32 Urine Opiates Screen Negative ng/mL (Negative) 06/29/24 11:59 Ur Barbiturates Screen Negative ng/mL (Negative) 06/29/24 11:59 Ur Phencyclidine Scrn Negative ng/mL (Negative) 06/29/24 11:59 Ur Amphetamines Screen Negative ng/mL (Negative) 06/29/24 11:59 U Benzodiazepines Scrn Negative ng/mL (Negative) 06/29/24 11:59 Urine Cocaine Screen Negative ng/mL (Negative) 06/29/24 11:59 U Marijuana (THC) Screen Negative ng/mL (Negative) 06/29/24 11:59 Coronavirus (PCR) Negative (Negative) 06/29/24 03:52 Influenza A (PCR) Positive (Negative) 06/29/24 03:52 Influenza Type B (PCR) Negative (Negative) 06/29/24 03:52 RSV (PCR) Negative (Negative) 06/29/24 03:52 Vitals Last Vital Signs Temp 98.5 F 07/01/24 12:00 Pulse 83 07/01/24 12:05 Resp 18 07/01/24 12:05 BP 137/85 07/01/24 12:00 Pulse Ox 87 L 07/01/24 12:05 O2 Del Method Nasal Cannula 07/01/24 12:05 O2 Flow Rate 3 07/01/24 12:05 FiO2 6 07/01/24 04:00 Discharge Plan Discharge Patient Disposition: Home Condition: Stable Prescriptions: New oseltamivir 75 mg Capsule 75 mg PO BID 3 Days Qty: 6 0RF levofloxacin 750 mg tablet 750 mg PO DAILY 5 Days Qty: 5 0RF prednisone 10 mg tablet See Taper PO BID Qty: 42 0RF Taper: predniSONE 60-10 60 mg Daily for 2 Days and 0 Hour 50 mg Daily for 2 Days and 0 Hour 40 mg Daily for 2 Days and 0 Hour 30 mg Daily for 2 Days and 0 Hour 20 mg Daily for 2 Days and 0 Hour 10 mg Daily for 2 Days and 0 Hour Continued albuterol sulfate 90 mcg/actuation HFA aerosol inhaler 2 inh INHALATION Q6H PRN (Reason: shortness of breath or wheezing) 30 Days Qty: 8 4RF (DME) oxygen-air delivery systems Device See Rx Instructions .Route Rx Instructions: As directed ipratropium-albuterol 0.5 mg-3 mg(2.5 mg base)/3 mL solution for nebulization 3 ml inhalation Q6H PRN (Reason: Wheezing) budesonide-formoterol [Symbicort] 160-4.5 mcg/actuation HFA aerosol inhaler 2 puff INHALATION BID 30 Days Qty: 30 2RF Changed metoprolol tartrate 50 mg tablet 50 mg PO BID 30 Days Qty: 60 0RF Discontinued budesonide-formoterol [Breyna] 160-4.5 mcg/actuation HFA aerosol inhaler 2 puff inhalation BID Discharge Orders: Discharge Order (Routine); Ordered 07/01/24 Ordered By: Rona Armstrong Referrals: Kristen Thomas FNP [Primary Care Provider] - 07/08/24 10:20 am Discharge Diet: Usual diet Discharge Activity: Resume usual activity Patient Instructions: Prednisone (By mouth) (Prednisone Intensol, Prednicot, Deltasone, Aliyah), Levofloxacin (By mouth) (Levaquin, Levaquin Leva-kristi), Oseltamivir (By mouth) (Tamiflu), Influenza (DC), COPD (Chronic Obstructive Pulmonary Disease) (DC), Hypertension (DC), Hyperlipidemia (DC), Opioid Safety Discharge Attestations Time Spent in Discharge Care*: greater than 30 min Quality Metrics Clinical Quality Measures [ No reported AMI, CVA or VTE this stay] Coding Level of Care Code Acute Code for Chg Fwd Diagnoses Centrilobular emphysema J43.2 COPD type: emphysema Emphysema type: centrilobular Influenza A J10.1 Fatigue R53.83 Hypertension, unspecified type I10 Hypertension type: unspecified Hyperlipidemia E78.5
== END 2024-07-01 13:46 | disposition home or self-care (01) ==
LOC: ER 05:07 → CSU 05:28
PROVIDERS: Internal Medicine; Admitting Provider Internal Medicine; Emergency Provider Emergency Medicine; PCP Nurse Practitioner Family; Visit Provider Student in an Organized Health Care Education/Training Program
DX: J43.2 Centrilobular emphysema (principal); J10.1 Influenza due to other identified influenza virus with other respiratory manifestations; R53.83 Other fatigue; I10 Essential (primary) hypertension; E78.5 Hyperlipidemia, unspecified; Z11.52 Encounter for screening for COVID-19; Z88.2 Allergy status to sulfonamides; Z88.8 Allergy status to other drugs, medicaments and biological substances; Z87.440 Personal history of urinary (tract) infections; F17.210 Nicotine dependence, cigarettes, uncomplicated; R00.0 Tachycardia, unspecified; J96.21 Acute and chronic respiratory failure with hypoxia; Z79.899 Other long term (current) drug therapy
CPT/HCPCS: 36415; 36600; 51702; 71045; 80048; 80051; 80306; 82330; 82805; 83735; 83880; 84100; 84145; 85025; 85378; 87637; 93005; 94640; 94660; 94760; 96365; 96367; 96372; 96375; 96376; 99291; G0378; J0456; J0696; J1650; J2919; J3475; J7050; J7626

== ENCOUNTER → 2024-07-24 10:32 | Outpatient (BNVA) | payer MEDICARE, SELFPAY | PROVIDERS: PCP Nurse Practitioner Family; Visit Provider Nurse Practitioner Family | DX: N39.0 Urinary tract infection, site not specified (principal); J43.2 Centrilobular emphysema; Z72.0 Tobacco use; Z09 Encounter for follow-up examination after completed treatment for conditions other than malignant neoplasm | CPT/HCPCS: 81000; 87086 ==

== ENCOUNTER → 2024-11-13 10:41 | Outpatient (BNVA) | payer MEDICARE, SELFPAY | PROVIDERS: PCP Nurse Practitioner Family; Visit Provider Nurse Practitioner | DX: R30.0 Dysuria (principal) | CPT/HCPCS: 81000; 81003 ==

== ENCOUNTER → 2024-11-27 15:44 | Outpatient (BNVA) | payer MEDICARE, SELFPAY | PROVIDERS: PCP Nurse Practitioner Family; Visit Provider Nurse Practitioner Family | DX: N30.00 Acute cystitis without hematuria (principal) | CPT/HCPCS: 81000 ==